=== PATIENT | male | born 1955 | race African-American/Black ===

== ENCOUNTER 2017-10-11 15:15 | Emergency (ER) | payer OTHER ==
[2017-10-11] MEDS ORDERED: DIAZEPAM 2 MG TABLET ONE (16:36)
[2017-10-11] MEDS ORDERED: ONDANSETRON 4 MG/2 ML VIAL ONE (16:36)
[2017-10-11] MEDS ORDERED: KETOROLAC 30 MG/ML INJ ONE ×2 (16:36→16:44)
[2017-10-11] MEDS ORDERED: MORPHINE 4 MG/ML SYR ONE ×2 (16:36→16:44)
--- NOTE | 2017-10-11 17:07 | RAD REPORT ---
EXAM DESCRIPTION: CT - Stone Protocol - 10/11/2017 4:53 pm CLINICAL HISTORY: Back pain, leg pain, buttocks pain COMPARISON: September 2011 TECHNIQUE: Axial 5 mm thick images were obtained without oral or IV contrast. The iavre-ki-rypf span s the entirety of the system partially obscuring uppermost abdomen and lung bases. All CT scans are performed using dose optimization technique as appropriate and may include automated exposure control or mA/KV adjustment according to patient size. FINDINGS: No hydronephrosis is present and no obstructing ureteral calculi. No suspicious renal mass es. Isodense masses and pyelonephritis are not excluded on a stone protocol CT scan. No urinary bladd er suspicious finding. Prostate gland and seminal vesicles within normal limits for patient age. Imaged portions of the liver, spleen and pancreas show no suspicious findings on non-contrast imaging . Cholecystectomy clips are present. No biliary tree dilatation. No significant adrenal finding. No acute bowel finding. There is moderate stool volume throughout the colon. No appendicitis. No acut e GI process identifiable. Fat extends into the origin of each inguinal canal, more pronounced on the right. Small 2 centimeter wide neck umbilical hernia is present. No acute findings at this site. No free air, free fluid or inf lammatory stranding. Prominent bony degenerative change along with postsurgical change noted in the lower lumbar spine. Li near hyperdensity is believed to be part of a pain infusion pump left behind after removal. No congestion or edema along the pelvic floor. Pelvic skeletal musculature shows no suspicious findin g. No congestion or edema in the fat of the perineum. IMPRESSION: Noncontrast CT abdomen and pelvis imaging, as detailed above, is without acute or suspic ious finding. Isodense masses and pyelonephritis are not excluded on stone protocol technique.
--- NOTE | 2017-10-11 18:19 | ER ---
Nurse's Notes [facility] Name: Vicente Roblero Age: 62 yrs Sex: Male : 1955 Arrival Date: 10/11/2017 Time: 15:19 Bed 19 Private MD: De Saavedra Diagnosis: Pain in right leg Presentation: 10/11 15:21 Presenting complaint: Patient states: my R leg has been hurting for the past week. the ch pain starts in my buttock and went down the back of my leg, but now its on the front of my leg. Transition of care: patient was not received from another setting of care. Onset of symptoms was October 05, 2017. Risk Assessment: Do you want to hurt yourself or someone else? Patient reports no desire to harm self or others. Initial Sepsis Screen: Does the patient meet any 2 criteria? No. Patient's initial sepsis screen is negative. Does the patient have a suspected source of infection? No. Patient's initial sepsis screen is negative. Care prior to arrival: None. 15:21 Method Of Arrival: Wheelchair ch 15:21 Acuity: IRWIN 4 ch Triage Assessment: 15:24 General: Appears in no apparent distress. uncomfortable, Behavior is calm, cooperative, ch appropriate for age. Pain: Complains of pain in buttocks and right leg Pain currently is 10 out of 10 on a pain scale. Historical: - Allergies: 15:24 No Known Allergies; ch - Home Meds: 15:24 amlodipine-benazepril 10-40 mg Oral cap [Active]; glipizide 10 mg Oral tab 1 tab once ch daily [Active]; Lipitor 40 mg Oral tab 1 tab once daily [Active]; metoprolol tartrate 50 mg Oral tab 1 tab 2 times per day [Active]; morphine 30 mg Oral TbER 1 tab every 8 hours [Active]; Percocet 10-325 mg Oral tab 1 tab every 6 hours [Active]; omeprazole 40 mg Oral cpDR 1 cap once daily [Active]; - PMHx: 15:24 cardiac stents x 5; Myocardial infarction; Back pain; Hyperlipidemia; Hypertension; ch GERD; - PSHx: 15:24 cardiac stents; back; bunion; Cholecystectomy; pain pump inserted and removed; - Immunization history:: Adult Immunizations up to date, Flu vaccine is up to date. - Social history:: Smoking status: Patient/guardian denies using tobacco, Patient/guardian denies using alcohol, street drugs. - Ebola Screening: : Patient negative for fever greater than or equal to 101.5 degrees Fahrenheit, and additional compatible Ebola Virus Disease symptoms Patient denies exposure to infectious person Patient denies travel to an Ebola-affected area in the 21 days before illness onset No symptoms or risks identified at this time. Screenin:13 Abuse screen: Denies threats or abuse. Denies injuries from another. Nutritional aj screening: No deficits noted. Tuberculosis screening: No symptoms or risk factors identified. Fall Risk None identified. Assessment: 18:13 General: Appears in no apparent distress. comfortable, Behavior is calm, cooperative, aj appropriate for age. Pain: Complains of pain in right lower back, right gluteus sree and right leg. Neuro: Level of Consciousness is awake, alert, obeys commands, Oriented to person, place, time, situation, Appropriate for age. Respiratory: Airway is patent Respiratory effort is even, unlabored, Respiratory pattern is regular, symmetrical. Derm: Skin is intact, is healthy with good turgor, Skin is pink, warm \T\ dry. normal. Musculoskeletal: Reports pain in coccyx, right lower back, right gluteus sree, right gluteal fold and right leg. 18:15 Reassessment: Patient ambulated in hallway with limp to right leg. Report pain has aj decreased from 10/10 to 8/10. 18:28 Reassessment: Patient appears in no apparent distress at this time. Patient and/or aj family updated on plan of care and expected duration. Pain level reassessed. Patient is alert, oriented x 3, equal unlabored respirations, skin warm/dry/pink. Patient states feeling better. Patient states symptoms have improved. Vital Signs: 15:24 BP 185 / 121; Pulse 108; Resp 18; Temp 97.8; Pulse Ox 97% on R/A; Weight 95.25 kg; Height 5 ft. 11 in. (180.34 cm); Pain 10/10; 18:13 BP 157 / 105; Pulse 96; Resp 18; Pulse Ox 98% on R/A; aj 15:24 Body Mass Index 29.29 (95.25 kg, 180.34 cm) ED Course: 15:19 Patient arrived in ED. sb2 15:19 De Saavedra MD is Private Physician. sb2 15:22 Triage completed. ch 15:24 Arm band placed on left wrist. Patient placed in an exam room, on a stretcher. 15:28 Christopher Caputo PA is PHCP. [facility] 15:28 Claudio Villatoro MD is Attending Physician. jmm 15:29 Morenita Mora, GINA is Primary Nurse. aj 16:[address] kw1 16:[address] CT Stone Protocol In Process Unspecified. EDMS 18:13 Patient has correct armband on for positive identification. aj 18:17 Haroon Strong MD is Referral Physician. jmm 18:28 No provider procedures requiring assistance completed. Patient did not have IV access aj during this emergency room visit. Administered Medications: 16:46 CANCELLED (route changed): Zofran 4 mg IVP once; over 2 minutes aj 16:46 CANCELLED (route changed): Ketorolac 30 mg IVP once aj 16:46 CANCELLED (route changed): Valium 2 mg IVP once aj 16:47 CANCELLED (route changed): morphine 4 mg IVP once aj 16:48 Drug: Ketorolac 30 mg Route: IM; Site: right deltoid; aj 18:30 Follow up: Response: Pain is decreased aj 16:48 Drug: Zofran 4 mg Route: IM; Site: left vastus lateralis; aj 18:31 Follow up: Response: Pain is decreased aj 16:48 Drug: morphine 4 mg Route: IM; Site: left deltoid; aj 18:31 Follow up: Response: Pain is decreased aj 16:49 Drug: Valium 2 mg Route: PO; aj 18:30 Follow up: Response: Pain is decreased aj Outcome: 18:18 Discharge ordered by . [facility] 18:28 Discharged to home ambulatory. aj 18:28 Condition: good 18:28 Discharge instructions given to patient, family, Instructed on discharge instructions, follow up and referral plans. Demonstrated understanding of instructions, follow-up care. 18:31 Patient left the ED. aj Signatures: Dispatcher [employer] EDMS Taryn Brumfield RN RN ch Myers, Amanda, RN RN Christopher Caputo PA [facility] Emmy Cha kw1 Evangelina Myers sb2
--- NOTE | 2017-10-11 18:19 | EDPHYS ---
Physician Documentation [facility] Name: Vicente Roblero Age: 62 yrs Sex: Male : 1955 Arrival Date: 10/11/2017 Time: 15:19 Bed 19 Private MD: De Saavedra ED Physician Claudio Villatoro HPI: 10/11 16:00 This 62 yrs old Black Male presents to ER via Wheelchair with complaints of Leg Pain, jmm LEG NUMBNESS. 16:00 The complaints affect the right hip, lateral aspect of right thigh, right gluteal fold, jmm right hamstring, right inner thigh, medial aspect of right thigh, right upper thigh and right quadriceps. Onset: The symptoms/episode began/occurred gradually, 2 week(s) ago. This is a 62 year old male with a hx of chronic right leg pain, DM, HTN that presents to the ED with progressively worsening pain over the past two weeks. Patient denies fever, denies injury. Patient states his pain management physician changed in pain medication. patient states his pain has progressively worsened since. Denies urinary retention, denies fecal incontinence. . Historical: - Allergies: 15:24 No Known Allergies; ch - Home Meds: 15:24 amlodipine-benazepril 10-40 mg Oral cap [Active]; glipizide 10 mg Oral tab 1 tab once ch daily [Active]; Lipitor 40 mg Oral tab 1 tab once daily [Active]; metoprolol tartrate 50 mg Oral tab 1 tab 2 times per day [Active]; morphine 30 mg Oral TbER 1 tab every 8 hours [Active]; Percocet 10-325 mg Oral tab 1 tab every 6 hours [Active]; omeprazole 40 mg Oral cpDR 1 cap once daily [Active]; - PMHx: 15:24 cardiac stents x 5; Myocardial infarction; Back pain; Hyperlipidemia; Hypertension; ch GERD; - PSHx: 15:24 cardiac stents; back; bunion; Cholecystectomy; pain pump inserted and removed; ch - Immunization history:: Adult Immunizations up to date, Flu vaccine is up to date. - Social history:: Smoking status: Patient/guardian denies using tobacco, Patient/guardian denies using alcohol, street drugs. - Ebola Screening: : Patient negative for fever greater than or equal to 101.5 degrees Fahrenheit, and additional compatible Ebola Virus Disease symptoms Patient denies exposure to infectious person Patient denies travel to an Ebola-affected area in the 21 days before illness onset No symptoms or risks identified at this time. ROS: 16:00 Constitutional: Negative for fever, chills, and weight loss, Abdomen/GI: Negative for jmm abdominal pain, nausea, vomiting, diarrhea, and constipation, Back: Negative for injury and pain. 16:00 MS/extremity: Positive for pain. 16:00 Neuro: Positive for tingling, pain. 16:00 All other systems are negative. Exam: 16:00 Head/Face: atraumatic. Cardiovascular: Regular rate and rhythm. No gallops, murmurs, jmm or rubs. Full/Equal distal pulses. Respiratory: Lungs have equal breath sounds bilaterally, clear to auscultation. No rales, rhonchi or wheezes noted. No increased work of breathing, no retractions or nasal flaring. 16:00 Constitutional: The patient appears alert, awake, uncomfortable. 16:00 Abdomen/GI: Inspection: obese 16:00 Back: no midline tenderness appreciated. 16:00 Musculoskeletal/extremity: dorsalis pedis pulse appreciated, extension of right great toe appreciated, NVI. 16:00 Skin: Appearance: Color: normal in color. 16:00 Neuro: Orientation: is normal, Mentation: is normal, Memory: is normal. 16:00 Psych: Behavior/mood is pleasant. Vital Signs: 15:24 BP 185 / 121; Pulse 108; Resp 18; Temp 97.8; Pulse Ox 97% on R/A; Weight 95.25 kg; ch Height 5 ft. 11 in. (180.34 cm); Pain 10/10; 18:13 BP 157 / 105; Pulse 96; Resp 18; Pulse Ox 98% on R/A; aj 15:24 Body Mass Index 29.29 (95.25 kg, 180.34 cm) ch MDM: 16:00 Differential diagnosis: spinal abscess, radicular pain. Data reviewed: vital signs, [facility] nurses notes. 16:09 Patient medically screened. [facility] 17:16 ED course: The patient stated that he also has a hx of bilateral hip pain is currently [facility] seeing Dr. Strong for this. Pain appears more likely due to this. The patient does not have a fever, is non toxic in appearance, has not had recent instrumentation of the spine that would be concerning for spinal abscess. Patient symptoms are mildly in the ED. The patient is advised of the need to follow up with Dr. Strong for reevaluation. Patient is other poole advised to return to the ED if he develops increased pain, fever, weakness. . 10/11 16:30 Order name: CT Stone Protocol; Complete Time: 17:16 [facility] Administered Medications: 16:46 CANCELLED (route changed): Zofran 4 mg IVP once; over 2 minutes aj 16:46 CANCELLED (route changed): Ketorolac 30 mg IVP once aj 16:46 CANCELLED (route changed): Valium 2 mg IVP once aj 16:47 CANCELLED (route changed): morphine 4 mg IVP once aj 16:48 Drug: Ketorolac 30 mg Route: IM; Site: right deltoid; aj 18:30 Follow up: Response: Pain is decreased aj 16:48 Drug: Zofran 4 mg Route: IM; Site: left vastus lateralis; aj 18:31 Follow up: Response: Pain is decreased aj 16:48 Drug: morphine 4 mg Route: IM; Site: left deltoid; aj 18:31 Follow up: Response: Pain is decreased aj 16:49 Drug: Valium 2 mg Route: PO; aj 18:30 Follow up: Response: Pain is decreased aj Disposition: 10/11/17 18:18 Discharged to Home. Impression: Pain in right leg. - Condition is Stable. - Discharge Instructions: Musculoskeletal Pain. - Medication Reconciliation Form, Thank You Letter, Antibiotic Education, Prescription Opioid Use form. - Follow up: Haroon Strong MD; When: 1 - 2 days; Reason: Recheck today's complaints. - Notes: Please follow up with pain management or orthopedics for further evaluation of your pain. Please return to the ED if you develop fever, weakness, numbness, or any other concerning symptom. Addendum: 10/19/2017 11:32 Co-signature as Attending Physician, Claudio Villatoro MD. g s Signatures: Dispatcher [employer] EDMS Taryn Brumfield RN RN ch Myers, Amanda, RN RN aj Mickail, Joel, PA PA jmm Starr, Gregory, MD MD gs Corrections: (The following items were deleted from the chart) 10/11 16:46 16:20 Zofran 4 mg IVP once; over 2 minutes ordered. zuleyka rosado 16:46 16:24 Ketorolac 30 mg IVP once ordered. zuleyka rosado 16:46 16:24 Valium 2 mg IVP once ordered. zuleyka rosado 16:47 16:20 IV Saline Lock ordered. zuleyka rosado 16:47 16:20 morphine 4 mg IVP once ordered. zuleyka rosado 18:31 18:18 10/11/2017 18:18 Discharged to Home. Impression: Pain in right leg. Condition is aj Stable. Forms are Medication Reconciliation Form, Thank You Letter, Antibiotic Education, Prescription Opioid Use. Follow up: Haroon Strong; When: 1 - 2 days; Reason: Recheck today's complaints. zuleyka
[2017-10-11 19:22] VITALS: BP 142/77; TEMP 99; O2SAT 99
== END 2017-10-11 18:31 | disposition home or self-care (01) ==
LOC: ER 15:15
DX: M79.604 Pain in right leg (principal); I10 Essential (primary) hypertension; E11.9 Type 2 diabetes mellitus without complications; E78.5 Hyperlipidemia, unspecified; Z95.818 Presence of other cardiac implants and grafts
CPT/HCPCS: 74176; 76377; 96372; 99284; J2405

== ENCOUNTER 2018-07-04 07:31 | Emergency (ER) | payer OTHER ==
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
[2018-07-04 08:58] VITALS: TEMP 98.2
[2018-07-04 08:59] VITALS: BP 126/89; O2SAT 96
== END 2018-07-04 08:53 | disposition home or self-care (01) ==
LOC: ER 07:31
DX: R51 Headache (principal); V49.40XA Driver injured in collision with unspecified motor vehicles in traffic accident, initial encounter; I10 Essential (primary) hypertension; E78.5 Hyperlipidemia, unspecified; I25.2 Old myocardial infarction; Z79.01 Long term (current) use of anticoagulants; Z79.82 Long term (current) use of aspirin; Z95.818 Presence of other cardiac implants and grafts
CPT/HCPCS: 70450; 72125; 99283

== ENCOUNTER 2020-01-27 09:23 | Observation (INO) | payer OTHER ==
--- OUTSIDE RECORDS SUMMARY | 2020-01-27 09:25 | XMS REPORT | Continuity of Care Document ---
:[address] [facility] t Address [address] [place] [address] Care Team Providers Name Role Phone Unavailable Unavailable Unavailable Payers Payer Name Policy Type Policy Number Effective Date Expiration Date S ource Problems This patient has no known problems. Allergies, Adverse Reactions, Alerts Allergy Allergy Status Severity Reaction(s) Onset Inactive Treating Comm ents Source Name Type Date Date Clinician massiel MONCADA Active [facility] n[facility] 01-24 00:00: [address] Medications This patient has no known medications. Procedures This patient has no known procedures. Results Test Description Test Time Test Comments Results Result Comments Source LIPID PROFILE (CORONARY RISK) 2019-01-25 08:23:00 Test Item Value Reference Range Interpretation Comme nts TRIGLYCERIDES (test code = TRIG) 117 MG/DL TRIGLYCERIDES REFERENCE RANGE:Normal: < 150 mg/dLBorderline High: 150-199 m g/dLHigh: 200-499 mg/dLVery High: >=500 mg/dL CHOLESTEROL (test code = CHOL) 175 MG/DL <200 HDL CHOLESTEROL (test code = HDL) 39 MG/DL 40-59 L LIPOPROTEIN LDL (test code = LDL) 117 MG/DL 0-99 H OPTIMAL........ .<100 mg/dLNEAR OPTIMAL/ABOVE OPTIMAL........ .100-129 mg/dL BORDERLINE HIGH.........13 0-159 mg/dL HI GH.........160-189 mg/dL VERY HIGH.........>/ = 190 mg/dL LIPID PROFILE (CORONARY RISK)2019-01-25 07:56:00 Test Item Value Reference Range Interpretation Comments TRIGLYCERIDES (test 117 MG/DL TRIGLYCE RIDES code = TRIG) REFERENCE RANGE:Normal: < 150 mg/dLBorderline High: 150-199 mg/dLHi gh: 200-499 mg/dLVe ry High: >=500 mg/ dL CHOLESTEROL (test code 175 MG/DL <200 = CHOL) HDL CHOLESTEROL (test 39 MG/DL 40-59 L code = HDL) LIPOPROTEIN LDL (test MG/DL 0-99 code = LDL) LIPID PROFILE (CORONARY RISK)2019-01-25 07:55:00 Test Item Value Reference Range Interpretation Comments TRIGLYCERIDES (test code = TRIG) MG/DL CHOLESTEROL (test code = CHOL) 175 MG/DL <200 HDL CHOLESTEROL (test code = HDL) MG/DL 40-59 LIPOPROTEIN LDL (test code = LDL) MG/DL 0-99 BASIC METABOLIC [id number] 07:21:00 Test Item Value Reference Range Interpretation Comments SODIUM (test code = 140 MMOL/L 137-145 N NA) POTASSIUM (test code = 4.1 MMOL/L 3.5-5.1 N K) CHLORIDE (test code = 103 MMOL/L 98-107 N CL) CARBON DIOXIDE (test 24 MMOL/L 22-30 N code = CO2) GLUCOSE (test code = 141 MG/DL 74-106 H GLU) BLOOD UREA NITROGEN 21 MG/DL 9-20 H (test code = BUN) GLOMERULAR FILTRATION > 60 Report ing units: RATE (test code = GFR) ml/mi n/1.73 m2 (Modified MDRD Formula)Referen ce Range: > or = 6 0 ml/min/1.73 m2 CREATININE (test code 0.90 MG/DL 0.66-1.25 N = CREAT) CALCIUM (test code = 9.9 MG/DL 8.4-10.2 N CA) [id number] 07:21:00 Test Item Value Reference Range Interpretation Comments LIPASE (test code = LIP) 65 UNITS/L 23-300 N [id number] 07:21:00 Test Item Value Reference Range Interpretation Comments MAGNESIUM (test code = MAG) 2.2 MG/DL 1.6-2.3 N PROTHROMBIN [id number] 07:21:00 Test Item Value Reference Range Interpretation Comments PROTHROMBIN TIME 10.7 SECONDS 9.6-11.6 N PATIENT (test code = PTP) INTERNATIONAL NORMAL 1.0 0.8-1.1 N The INR is to be RATIO (test code = used only for INR) monitoring oral anticoagulantth erap y. INDICATION I NR VALUE ---- ---- ---- -------1. Prophylaxis, de ep venous thrombos is, including hig h risk surgery. 2.0 - 3.0 2. Prophylaxis, de ep venous thrombos is, hip surgery, treatment for d eep venous thrombosis or pulmonary prevention of systemic emboli sm in patients wit h valvular heart disease, atrial fibrillation, tissue heart va lve, or acute myocar dial infarction. 2.0 - 3 .0 3. Mechanical prosthesis hear t valves, recurrent syste ibrahima embolism. 3.0 - 4.5 Comments to Braille Translator: WILL BRING TO THE LABPTT [id number] 07:21:00 Test Item Value Reference Range Interpretation Comments PTT ACTIVATED (test code = APTT) 32.9 SECONDS 22.0-33.0 N Comments to Braille Translator: WILL BRING TO THE LABBASIC METABOLIC [id number] 07:20:00 Test Item Value Reference Range Interpretation Comments SODIUM (test code = 140 MMOL/L 137-145 N NA) POTASSIUM (test code = 4.1 MMOL/L 3.5-5.1 N K) CHLORIDE (test code = 103 MMOL/L 98-107 N CL) CARBON DIOXIDE (test 24 MMOL/L 22-30 N code = CO2) GLUCOSE (test code = MG/DL 74-106 GLU) BLOOD UREA NITROGEN MG/DL 9-20 (test code = BUN) GLOMERULAR FILTRATION > 60 Report ing units: RATE (test code = GFR) ml/mi n/1.73 m2 (Modified MDRD Formula)Referen ce Range: > or = 6 0 ml/min/1.73 m2 CREATININE (test code 0.90 MG/DL 0.66-1.25 N = CREAT) CALCIUM (test code = MG/DL 8.7-9.7 CA) [id number] 07:20:00 Test Item Value Reference Range Interpretation Comments LIPASE (test code = LIP) 65 UNITS/L 23-300 N [id number] 07:20:00 Test Item Value Reference Range Interpretation Comments MAGNESIUM (test code = MAG) MG/DL 1.6-2.3 BASIC METABOLIC [id number] 07:18:00 Test Item Value Reference Range Interpretation Comments SODIUM (test code = NA) 140 MMOL/L 137-145 N POTASSIUM (test code = K) 4.1 MMOL/L 3.5-5.1 N CHLORIDE (test code = CL) 103 MMOL/L 98-107 N CARBON DIOXIDE (test code = CO2) MMOL/L 22-30 GLUCOSE (test code = GLU) MG/DL 74-106 BLOOD UREA NITROGEN (test code = MG/DL 9-20 BUN) GLOMERULAR FILTRATION RATE (test code = GFR) CREATININE (test code = CREAT) MG/DL 0.66-1.25 CALCIUM (test code = CA) MG/DL 8.7-9.7 [id number] 07:18:00 Test Item Value Reference Range Interpretation Comments LIPASE (test code = LIP) UNITS/L 23-300 [id number] 07:18:00 Test Item Value Reference Range Interpretation Comments MAGNESIUM (test code = MAG) MG/DL 1.6-2.3 BASIC METABOLIC [id number] 07:17:00 Test Item Value Reference Range Interpretation Comments SODIUM (test code = NA) 140 MMOL/L 137-145 N POTASSIUM (test code = K) MMOL/L 3.5-5.1 CHLORIDE (test code = CL) 103 MMOL/L 98-107 N CARBON DIOXIDE (test code = CO2) MMOL/L 22-30 GLUCOSE (test code = GLU) MG/DL 74-106 BLOOD UREA NITROGEN (test code = MG/DL 9-20 BUN) GLOMERULAR FILTRATION RATE (test code = GFR) CREATININE (test code = CREAT) MG/DL 0.66-1.25 CALCIUM (test code = CA) MG/DL 8.7-9.7 [id number] 07:17:00 Test Item Value Reference Range Interpretation Comments LIPASE (test code = LIP) UNITS/L 23-300 [id number] 07:17:00 Test Item Value Reference Range Interpretation Comments MAGNESIUM (test code = MAG) MG/DL 1.6-2.3 CBC W/AUTO [id number] 07:07:00 Test Item Value Reference Range Interpretation Comments WHITE BLOOD CELL (test code = 6.5 K/MM3 3.8-9.8 N WBC) RED BLOOD CELL (test code = 4.75 M/MM3 3.95-5.67 N RBC) HEMOGLOBIN (test code = HGB) 14.8 G/DL 12.4-16.7 N HEMATOCRIT (test code = HCT) 45.2 % 35.9-49.5 N MEAN CELL VOLUME (test code = 95 fL 81.7-96.1 N MCV) MEAN CELL HGB (test code = MCH) 31.2 pg 27.6-33.2 N MEAN CELL HGB CONCETRATION 32.7 % 32.9-35.5 L (test code = MCHC) RED CELL DISTRIBUTION WIDTH 12.7 % 12.1-15.2 N (test code = RDW) PLATELET COUNT (test code = 313 K/MM3 129-368 N PLT) MEAN PLATELET VOLUME (test code 10.0 fl 7.4-10.4 N = MPV) NEUTROPHIL % (test code = NT%) 63.3 % 43-75 N IMMATURE GRANULOCYTE % (test 0.3 % 0.0-2.0 N code = IG%) LYMPHOCYTE % (test code = LY%) 25.6 % 14-44 N MONOCYTE % (test code = MO%) 9.0 % 4-13 N EOSINOPHIL % (test code = EO%) 1.2 % 0-6 N BASOPHIL % (test code = BA%) 0.6 % 0-2 N NUCLEATED RBC % (test code = 0.0 % 0-1.0 N NRBC%) NEUTROPHIL # (test code = NT#) 4.08 K/mm3 2.0-7.6 N IMMATURE GRANULOCYTE # (test 0.02 x10 3/uL 0-0.03 N code = IG#) LYMPHOCYTE # (test code = LY#) 1.65 K/mm3 1.0-3.8 N MONOCYTE # (test code = MO#) 0.58 K/mm3 0.1-0.8 N EOSINOPHIL # (test code = EO#) 0.08 K/mm3 0.0-0.2 N BASOPHIL # (test code = BA#) 0.04 K/mm3 0.0-0.2 N NUCLEATED RBC # (test code = 0.00 K/mm3 0.0-0.1 N NRBC#)
[2020-01-27 10:08] LABS: Protime INR 1.13
[2020-01-27] MEDS ORDERED: NITROGLYCERIN 0.4 MG/TAB SL ONE (10:11)
[2020-01-27 10:23] LABS: Absolute Lymphocytes (CBC) 1.3 K/uL (0.7-4.9); BUN Blood Urea Nitrogen 26 mg/dL (7-18); Bicarbonate 22 mmol/L (21-32); Glucose Level 164 mg/dL (74-106); Hematocrit 48.8 % (39.6-49.0); Lymphocytes % 24.7 % (15.3-44.8); MPV 8.6 fL (7.6-11.3); NT PRO-BNP 9 pg/mL (<125); Potassium 4.5 mmol/L (3.5-5.1); RBC Red Blood Cell Count 5.24 M/uL (4.33-5.43); Sodium Level 136 mmol/L (136-145); Troponin (Emerg Dept Use Only) < 0.02 ng/mL (0.0-0.045)
[2020-01-27] MEDS ORDERED: ONDANSETRON 4 MG/2 ML VIAL ONE (10:28)
[2020-01-27] MEDS ORDERED: MORPHINE 4 MG/ML SYR ONE (10:28)
[2020-01-27] MEDS ORDERED: ASPIRIN 81 MG CHEWABLE TABLET ONE (10:52)
--- NOTE | 2020-01-27 11:27 | RAD REPORT ---
EXAM DESCRIPTION: RAD - Chest Single View - 01/27/2020 10:15 am CLINICAL HISTORY: CHEST PAIN, left side COMPARISON: Portable May 2017 TECHNIQUE: AP portable chest image was obtained 01/27/2020 10:15 am . FINDINGS: Lungs are clear. Heart and vasculature are normal. No measurable pleural effusion and no p neumothorax. No acute bony abnormality seen. No acute aortic findings suspected. IMPRESSION: No acute cardiopulmonary process. No significant change from comparison.
--- NOTE | 2020-01-27 11:36 | EDPHYS ---
Physician Documentation [facility] Name: Vicente Roblero Age: 64 yrs Sex: Male : 1955 Arrival Date: 01/27/2020 Time: 09:24 Bed 6 Private MD: ED Physician Perico Eric HPI: 01/26 09:42 This 64 yrs old Black Male presents to ER via Ambulatory with complaints of Chest Pain, rn Shortness Of Breath. 09:42 The patient or guardian reports chest pain that is located primarily in the anterior rn chest wall, anterior aspect of left upper chest. Onset: 2 day(s) ago. The pain radiates to the left shoulder. Associated signs and symptoms: Pertinent positives: shortness of breath. The chest pain is described as a heaviness. Duration: The patient or guardian reports multiple episodes, that are intermittent. Modifying factors: The symptoms are alleviated by nothing. the symptoms are aggravated by nothing. Severity of pain: At its worst the pain was moderate in the emergency department the pain has improved. The patient has experienced similar episodes in the past. Reports substernal and left sided chest pain, assoc with sob, no cough/fever, no trauma, began 2 days ago, intermittent for about 15-20 min, improves on its own, worse today and not improving. Takes daily 81mg aspirin. Reports UT in past with 5 stents. Last cath 1 year ago, no stent. . Historical: - Allergies: 10:23 Stadol; tw2 - Home Meds: 10:23 aspirin 81 mg Oral chew 1 tab once daily [Active]; glipizide 10 mg Oral tab 1 tab once tw2 daily [Active]; metoprolol tartrate 50 mg Oral tab 1 tab 2 times per day [Active]; omeprazole 40 mg Oral cpDR 1 cap once daily [Active]; 10:48 atorvastatin 40 mg oral tab 1 tab once daily [Active]; isosorbide 20 mg 1 tab [Active]; tw2 morphine 30 mg Oral TbER 1 tab every 12 hours [Active]; Plavix 75 mg oral tab 1 tab once daily [Active]; Cymbalta 60 mg oral cpDR 1 cap once daily [Active]; cyclobenzaprine 10 mg Oral tab 1 tab 3 times per day [Active]; Nitrostat 0.3 mg SL subl 1 tab every 5 minutes [Active]; MS Contin 30 mg Oral TbER 1 tab every 12 hours [Active]; Decara 50,000 unit oral cap [Active]; metformin 500 mg Oral tr24 1 tab once daily [Active]; Zofran (as hydrochloride) 4 mg Oral tab 1 tabs [Active]; Jardiance 10 mg oral tab 1 tab once daily [Active]; 11:31 empagliflozin oral 10 mg oral 1 tab once daily [Active]; hydrochlorothiazide 12.5 mg tw2 Oral tab 1 tab once daily [Active]; amlodipine-olmesartan oral 10 mg - 40 mg oral 1 tab once daily [Active]; ProAir HFA 90 mcg/actuation inhalation HFAA 1 puff every 4 hours [Active]; albuterol sulfate 2.5 mg /3 mL (0.083 %) Inhl nebu 3 mL 3 times per day [Active]; cetirizine 10 mg oral tab 1 tab once daily [Active]; - PMHx: 10:23 Hypertension; Hyperlipidemia; Myocardial infarction; cardiac stents x 5; Back pain; tw2 GERD; 13:57 Diabetes - NIDDM; tw2 - PSHx: 10:23 cardiac stents; Cholecystectomy; bunion; pain pump inserted and removed; back; tw2 - Immunization history:: Adult Immunizations. - Family history:: not pertinent. - Social history:: Smoking status: . - Hospitalizations: : No recent hospitalization is reported. ROS: 09:42 Constitutional: Negative for fever, chills, and weight loss, Eyes: Negative for injury, rn pain, redness, and discharge, Neck: Negative for injury, pain, and swelling, Cardiovascular: Negative for palpitations, and edema, Respiratory: Negative for cough, wheezing, and pleuritic chest pain, Abdomen/GI: Negative for abdominal pain, nausea, vomiting, diarrhea, and constipation, Back: Negative for injury and pain, MS/Extremity: Negative for injury and deformity, Skin: Negative for injury, rash, and discoloration, Neuro: Negative for headache, weakness, numbness, tingling, and seizure. Exam: 09:40 ECG was reviewed by the Attending Physician. rn 09:42 Constitutional: This is a well developed, well nourished patient who is awake, alert, rn and in no acute distress. Head/Face: Normocephalic, atraumatic. Cardiovascular: Regular rate and rhythm. No pulse deficits. Respiratory: No increased work of breathing, no retractions or nasal flaring. Abdomen/GI: soft, non-tender Skin: Warm, dry MS/ Extremity: Pulses equal, no cyanosis. Neuro: Awake and alert, GCS 15 Vital Signs: 09:35 BP 136 / 90; Pulse 87; Resp 16; Temp 97.6; Pulse Ox 100% ; Pain 8/10; hb 10:27 Weight 95.25 kg (R); tw2 10:30 BP 118 / 85; Pulse 76; Resp 13; Pulse Ox 98% on R/A; tw2 10:43 Pain 4/10; tw2 11:21 BP 99 / 67; Pulse 78; Resp 14; Pulse Ox 99% on R/A; tw2 12:18 BP 111 / 78; Pulse 85; Resp 16; Pulse Ox 100% on R/A; tw2 13:20 BP 106 / 69; Pulse 83; Resp 17; Pulse Ox 99% on R/A; tw2 14:00 BP 118 / 73; Pulse 79; Resp 17; Pulse Ox 100% ; sv MDM: 09:28 Patient medically screened. rn 11:32 Differential diagnosis: coronary artery disease chest wall pain, congestive heart rn failure costochondritis, esophagitis, gastritis, gastroesophageal reflux disease (GERD), pleurisy, pneumothorax, stable angina, unstable angina. The patient was given aspirin in the Emergency Department. Data reviewed: vital signs, nurses notes, lab test result(s), EKG, radiologic studies, plain films, and as a result, I will admit patient. Counseling: I had a detailed discussion with the patient and/or guardian regarding: the historical points, exam findings, and any diagnostic results supporting the discharge/admit diagnosis, lab results, radiology results, the need for further work-up and treatment in the hospital. Response to treatment: the patient's symptoms have resolved after treatment, and as a result, I will admit patient. Admission orders: after a detailed discussion of the patient's condition and case, the admit orders are written by me. ED course: Pain resolved after morphine and aspirin. Will admit for chest pain w/u given strong history and no other etiology found. . 01/26 09:42 Order name: Basic Metabolic Panel rn 01/26 09:42 Order name: CBC with Diff rn 01/26 09:42 Order name: NT PRO-BNP rn 01/26 09:42 Order name: PT-INR rn 01/26 09:42 Order name: Troponin (emerg Dept Use Only) rn 01/26 09:42 Order name: Basic Metabolic Panel; Complete Time: 10:37 EDMS 01/26 09:42 Order name: XRAY Chest (1 view); Complete Time: 11:29 rn 01/26 09:42 Order name: CBC with Automated Diff; Complete Time: 10:37 EDMS 01/26 09:42 Order name: NT PRO-BNP; Complete Time: 10:37 EDMS 01/26 09:42 Order name: Protime (+INR); Complete Time: 10:37 EDMS 01/26 09:42 Order name: Troponin (Emerg Dept Use Only); Complete Time: 10:37 EDMS 01/26 09:42 Order name: EKG; Complete Time: 09:42 rn 01/26 09:42 Order name: Cardiac monitoring; Complete Time: 10:00 rn 01/26 09:42 Order name: EKG - Nurse/Tech; Complete Time: 09:42 rn 01/26 09:42 Order name: IV Saline Lock; Complete Time: 10:00 rn 01/26 09:42 Order name: Labs collected and sent; Complete Time: 10:00 rn 01/26 09:42 Order name: O2 Per Protocol; Complete Time: 10:00 rn 01/26 09:42 Order name: O2 Sat Monitoring; Complete Time: 10:00 rn EC:40 Rate is 90 beats/min. Rhythm is regular. QRS [place] is Normal. [place] interval is normal. QRS rn interval is normal. QT interval is normal. No Q waves. T waves are Normal. No ST changes noted. Clinical impression: Normal ECG. Interpreted by me. Reviewed by me. Administered Medications: 10:04 Drug: Nitroglycerin 0.4 mg Route: Sublingual; tw2 10:17 Follow up: Response: No adverse reaction; Pain is unchanged, physician notified tw2 10:19 Drug: Zofran (Ondansetron) 4 mg Route: IVP; Site: right forearm; tw2 10:42 Follow up: Response: No adverse reaction tw2 10:21 Drug: morphine 4 mg Route: IVP; Site: right forearm; tw2 10:42 Follow up: Response: No adverse reaction; Pain is decreased; RASS: Alert and Calm (0) tw2 10:42 Drug: Aspirin Chewable Tablet 324 mg Route: PO; tw2 12:17 Follow up: Response: No adverse reaction tw2 Disposition: 01/27/20 11:35 Hospitalization ordered by Mark Walker for Observation. Preliminary diagnosis is Chest pain, unspecified. - Bed requested for Telemetry/MedSurg (observation). - Status is Observation. tw2 - Condition is Stable. - Problem is new. - Symptoms have improved. Signatures: Dispatcher [employer] EDMS Alice Yeboah Perico Dong MD MD rn Wise, Tara, RN RN tw2 Corrections: (The following items were deleted from the chart) 10:49 10:23 Home Meds: atorvastatin Oral; tw2 tw2 10:49 10:23 Home Meds: isosorbide; tw2 tw2 10:49 10:23 Home Meds: morphine 30 mg Oral TbER 1 tab every 8 hours; tw2 tw2 10:49 10:23 Home Meds: Plavix Oral; tw2 tw2 11:31 10:23 Home Meds: amlodipine-benazepril 10-40 mg Oral cap; tw2 tw2 11:31 10:23 Home Meds: Lipitor 40 mg Oral tab 1 tab once daily; tw2 tw2 11:31 10:23 Home Meds: Percocet 10-325 mg Oral tab 1 tab every 6 hours; tw2 tw2 13:12 11:35 Hospitalization Ordered by Mark Walker for Observation. Preliminary diagnosis bd is Chest pain, unspecified. Bed requested for Telemetry/MedSurg (observation). Status is Observation. Condition is Stable. Problem is new. Symptoms have improved. rn 14:18 13:12 01/27/2020 11:35 Hospitalization Ordered by Mark Walker for Observation. tw2 Preliminary diagnosis is Chest pain, unspecified. Bed requested for Telemetry/MedSurg (observation). Status is Observation. Condition is Stable. Problem is new. Symptoms have improved. bd
--- NOTE | 2020-01-27 11:36 | ER ---
Nurse's Notes [facility] Name: Vicente Roblero Age: 64 yrs Sex: Male : 1955 Arrival Date: 01/27/2020 Time: 09:24 Bed 6 Private MD: Diagnosis: Chest pain, unspecified Presentation: 01/26 09:35 Chief complaint: Intermittent left sided chest pain that radiates to left shoulder and hb upper back x 3 days. Also c/o nausea and SOB. Hx of OH with stent placement. Coronavirus screen: At this time, the client does not indicate any symptoms associated with coronavirus-19. Ebola Screen: No symptoms or risks identified at this time. Initial Sepsis Screen: Does the patient meet any 2 criteria? No. Patient's initial sepsis screen is negative. Does the patient have a suspected source of infection? No. Patient's initial sepsis screen is negative. Risk Assessment: Do you want to hurt yourself or someone else? Patient reports no desire to harm self or others. Onset of symptoms was January 24, 2020. 09:35 Method Of Arrival: Ambulatory hb 09:35 Acuity: IRWIN 3 hb Historical: - Allergies: 10:23 Stadol; tw2 - Home Meds: 10:23 aspirin 81 mg Oral chew 1 tab once daily [Active]; glipizide 10 mg Oral tab 1 tab once tw2 daily [Active]; metoprolol tartrate 50 mg Oral tab 1 tab 2 times per day [Active]; omeprazole 40 mg Oral cpDR 1 cap once daily [Active]; 10:48 atorvastatin 40 mg oral tab 1 tab once daily [Active]; isosorbide 20 mg 1 tab [Active]; tw2 morphine 30 mg Oral TbER 1 tab every 12 hours [Active]; Plavix 75 mg oral tab 1 tab once daily [Active]; Cymbalta 60 mg oral cpDR 1 cap once daily [Active]; cyclobenzaprine 10 mg Oral tab 1 tab 3 times per day [Active]; Nitrostat 0.3 mg SL subl 1 tab every 5 minutes [Active]; MS Contin 30 mg Oral TbER 1 tab every 12 hours [Active]; Decara 50,000 unit oral cap [Active]; metformin 500 mg Oral tr24 1 tab once daily [Active]; Zofran (as hydrochloride) 4 mg Oral tab 1 tabs [Active]; Jardiance 10 mg oral tab 1 tab once daily [Active]; 11:31 empagliflozin oral 10 mg oral 1 tab once daily [Active]; hydrochlorothiazide 12.5 mg tw2 Oral tab 1 tab once daily [Active]; amlodipine-olmesartan oral 10 mg - 40 mg oral 1 tab once daily [Active]; ProAir HFA 90 mcg/actuation inhalation HFAA 1 puff every 4 hours [Active]; albuterol sulfate 2.5 mg /3 mL (0.083 %) Inhl nebu 3 mL 3 times per day [Active]; cetirizine 10 mg oral tab 1 tab once daily [Active]; - PMHx: 10:23 Hypertension; Hyperlipidemia; Myocardial infarction; cardiac stents x 5; Back pain; tw2 GERD; 13:57 Diabetes - NIDDM; tw2 - PSHx: 10:23 cardiac stents; Cholecystectomy; bunion; pain pump inserted and removed; back; tw2 - Immunization history:: Adult Immunizations. - Family history:: not pertinent. - Social history:: Smoking status: . - Hospitalizations: : No recent hospitalization is reported. Screenin:34 Abuse screen: Denies threats or abuse. Nutritional screening: No deficits noted. tw2 Tuberculosis screening: No symptoms or risk factors identified. Fall Risk None identified. Assessment: 09:30 General: Appears in no apparent distress. Behavior is calm, cooperative, appropriate tw2 for age. Pain: Complains of pain in chest Pain radiates to left arm Pain began 2-3 days ago. 09:34 Reassessment: provider at bedside at this time. tw2 10:29 Neuro: Level of Consciousness is awake, alert, obeys commands, Oriented to person, tw2 place, time, situation. Cardiovascular: Reports chest pain, shortness of breath, Heart tones S1 S2 Capillary refill < 3 seconds Patient's skin is warm and dry. Respiratory: Airway is patent Respiratory effort is even, unlabored, Respiratory pattern is regular, symmetrical, Breath sounds are clear bilaterally. GI: No signs and/or symptoms were reported involving the gastrointestinal system. Abdomen is round non-distended, Bowel sounds present X 4 quads. : No signs and/or symptoms were reported regarding the genitourinary system. EENT: No signs and/or symptoms were reported regarding the EENT system. Derm: No signs and/or symptoms reported regarding the dermatologic system. Musculoskeletal: Range of motion: intact in all extremities. 10:30 Reassessment: Patient appears in no apparent distress at this time. Patient and/or tw2 family updated on plan of care and expected duration. Pain level reassessed. Patient is alert, oriented x 3, equal unlabored respirations, skin warm/dry/pink. 10:43 Reassessment: Patient states feeling better. Patient states symptoms have improved. tw2 11:21 Reassessment: Patient appears in no apparent distress at this time. Patient and/or tw2 family updated on plan of care and expected duration. Pain level reassessed. Patient is alert, oriented x 3, equal unlabored respirations, skin warm/dry/pink. 11:34 Reassessment: Patient appears in no apparent distress at this time. Patient and/or tw2 family updated on plan of care and expected duration. Pain level reassessed. pt states "i need to go #2", provided pt with w/c and o2 via NC at this time. pt returned to room at this time, states "i think the treatment helped just a little bit". 12:16 Reassessment: hospitalist at bedside at this time. tw2 12:19 Reassessment: Patient appears in no apparent distress at this time. Patient and/or tw2 family updated on plan of care and expected duration. Pain level reassessed. Patient is alert, oriented x 3, equal unlabored respirations, skin warm/dry/pink. 13:20 Reassessment: Patient appears in no apparent distress at this time. Patient and/or tw2 family updated on plan of care and expected duration. Pain level reassessed. Patient is alert, oriented x 3, equal unlabored respirations, skin warm/dry/pink. 14:18 Reassessment: Patient appears in no apparent distress at this time. Patient and/or tw2 family updated on plan of care and expected duration. Pain level reassessed. Patient is alert, oriented x 3, equal unlabored respirations, skin warm/dry/pink. Vital Signs: 09:35 BP 136 / 90; Pulse 87; Resp 16; Temp 97.6; Pulse Ox 100% ; Pain 8/10; hb 10:27 Weight 95.25 kg (R); tw2 10:30 BP 118 / 85; Pulse 76; Resp 13; Pulse Ox 98% on R/A; tw2 10:43 Pain 4/10; tw2 11:21 BP 99 / 67; Pulse 78; Resp 14; Pulse Ox 99% on R/A; tw2 12:18 BP 111 / 78; Pulse 85; Resp 16; Pulse Ox 100% on R/A; tw2 13:20 BP 106 / 69; Pulse 83; Resp 17; Pulse Ox 99% on R/A; tw2 14:00 BP 118 / 73; Pulse 79; Resp 17; Pulse Ox 100% ; sv ED Course: 09:24 Patient arrived in ED. ds1 09:28 Perico Eric MD is Attending Physician. rn 09:31 Vielka Cruz RN is Primary Nurse. tw2 09:34 Placed in gown. Bed in low position. color television console monitor on. Pulse ox on. NIBP on. tw2 09:34 Patient maintains SpO2 saturation greater than 95% on room air. tw2 09:35 Arm band placed on. tw2 09:37 Triage completed. hb 09:42 EKG done, by ED staff, reviewed by Perico Eric MD. em1 09:49 Missed attempt(s): 22 gauge in left upper arm. Bleeding controlled, band aid applied, tw2 catheter tip intact. 10:15 XRAY Chest (1 view) In Process Unspecified. EDMS 10:32 Basic Metabolic Panel Sent. sv 10:32 CBC with Diff Sent. sv 10:32 NT PRO-BNP Sent. sv 10:32 PT-INR Sent. sv 10:32 Troponin (emerg Dept Use Only) Sent. sv 11:34 Mark Walker is Hospitalizing Provider. rn 12:54 Warm blanket given. Pillow given. sv 13:13 Awaiting: unsuccessful attempt to call report at this time. tw2 13:50 No provider procedures requiring assistance completed. Patient admitted, IV remains in tw2 place. Administered Medications: 10:04 Drug: Nitroglycerin 0.4 mg Route: Sublingual; tw2 10:17 Follow up: Response: No adverse reaction; Pain is unchanged, physician notified tw2 10:19 Drug: Zofran (Ondansetron) 4 mg Route: IVP; Site: right forearm; tw2 10:42 Follow up: Response: No adverse reaction tw2 10:21 Drug: morphine 4 mg Route: IVP; Site: right forearm; tw2 10:42 Follow up: Response: No adverse reaction; Pain is decreased; RASS: Alert and Calm (0) tw 10:42 Drug: Aspirin Chewable Tablet 324 mg Route: PO; tw2 12:17 Follow up: Response: No adverse reaction tw2 Outcome: 11:35 Decision to Hospitalize by Provider. rn 13:56 Admitted to Med/surg accompanied by nurse, via wheelchair, Report called to GINA Mendiola tw2 13:56 Condition: stable 13:56 Instructed on the need for admit. 14:18 Patient left the ED. tw2 Signatures: Dispatcher [employer] Tabatha Estrella RN RN sv Sanford, Demi ds1 Perico Eric MD MD rn Martinez, Eric em1 Baxter, Heather, RN RN hb Wise, Tara, RN RN tw2 Corrections: (The following items were deleted from the chart) 10:29 09:30 Pain: Complains of pain in chest Pain radiates to left arm Pain began 10:49 10:23 Home Meds: atorvastatin Oral; 10:49 10:23 Home Meds: isosorbide; 10:49 10:23 Home Meds: morphine 30 mg Oral TbER 1 tab every 8 hours; 10:49 10:23 Home Meds: Plavix Oral; 11:31 10:23 Home Meds: amlodipine-benazepril 10-40 mg Oral cap; 11:31 10:23 Home Meds: Lipitor 40 mg Oral tab 1 tab once daily; 11:31 10:23 Home Meds: Percocet 10-325 mg Oral tab 1 tab every 6 hours; tw2 13:50 13:49 BP 106 / 69; Pulse 83bpm; Resp 17bpm; Pulse Ox 99% RA; tw2 tw2
--- NOTE | 2020-01-27 12:16 | EKG ---
Test Date: 2020-01-27 Test Time: 09:38:29 Auto Mechanic: ARACELY MEASUREMENT RESULTS: Intervals: Rate: 88 NV: 144 QRSD: 64 QT: 350 QTc: 423 [place]: P: 65 NV: 144 QRS: 65 T: 45 INTERPRETIVE STATEMENTS: Normal sinus rhythm Normal ECG Compared to ECG 05/30/2017 06:23:39 No significant changes Electronically Signed On 01-27-20 12:14:58 CDT by Poncho Munoz
--- NOTE | 2020-01-27 12:56 | P.HP ---
Certification for Inpatient Patient admitted to: Observation With expected LOS: <2 Midnights Practitioner: I am a practitioner with admitting privileges, knowledge of patient current condition, hospital course, and medical plan of care. Services: Services provided to patient in accordance with Admission requirements found in Title 42 Section 412.3 of the Code of Federal Regulations Patient History Date of Service: 01/27/20 Reason for admission: Chest pain History of Present Illness: 64-year-old gentleman with a history of coronary artery disease status post stent, history of chronic back pain presented to the emergency department with a complaint of chest pain of onset 2 days ago. Patient described and intermittent chest, located in the anterior chest, no radiates, currently rated at 5/10, relieved by nitroglycerin, aspirin and morphine given in the ED. Patient states he does stress test every year, his last stress test was abnormal which was followed by a cardiac catheterization. Patient stated his lead sprinkler noted some incomplete occlusion which was not stented. His initial troponin in the ED is negative. EKG demonstrate normal sinus rhythm, no ischemic changes. Chest x-ray is unremarkable. Patient is placed under observation for ACS rule out. Allergies No Known Drug Allergies Allergy (Verified 05/29/17 19:28) Unknown No Known Allergies Allergy (Uncoded 10/11/17 18:35) Unknown Home Medications: Aspirin 81 mg PO DAILY 10/03/11 Clopidogrel Bisulfate [Plavix] 75 mg PO DAILY 10/03/11 Hydrocodone/Acetaminophen [Lorcet 10-650 Tablet] 1 each PO QID 10/03/11 Cyclobenzaprine [Flexeril*] 10 mg PO TID 06/23/14 Duloxetine [Cymbalta *] 60 mg PO BID 06/23/14 Gabapentin [Neurontin] 600 mg PO TID 06/23/14 Metoprolol Tartrate [Lopressor*] 50 mg PO BID 06/23/14 Isosorbide Mononitrate [Imdur] 30 mg PO DAILY #30 tab.sr.24h 10/12/14 Nitroglycerin [Nitrostat*] 0.4 mg SL UD PRN #100 tab 10/12/14 Metformin ER [Glucophage ER*] 1,000 mg PO BIDWM tab.sa 06/04/16 Morphine *Extended Release* [MS Contin*] 30 mg PO BID tab 06/04/16 Omeprazole [Prilosec] 40 mg PO DAILY #30 capsule. 06/04/16 glipiZIDE [Glucotrol*] 5 mg PO DAILY WITH BREAKFAST tab 06/04/16 Atorvastatin Calcium [Lipitor] 40 mg PO BEDTIME 05/29/17 - Past Medical/Surgical History Diabetic: Yes -: CAD -: HTN -: depression -: spinal stenosis -: DJD -: osteoarthritis -: hyperglycemia -: GERD -: hyperlipidemia -: Diabetes -: back surg -: 5 stents cardiac -: bunionectomy -: rt 5th finger repair -: laminectomy injury 2* fall -: slime - Family History Mother -: Lung disease, Cancer Notes: verbalized mother Smoked heavily Father -: Cancer, Liver disease Notes: verbalized father ETOH use heavily - Social History Smoking Status: Never smoker Alcohol use: Yes CD- Drugs: No Caffeine use: Yes Review of Systems Other: Patient denies cough or shortness of breath. He denied any diaphoresis or nausea or vomiting. He endorsed back pain. Except as documented, all other systems reviewed and negative. Physical Examination - Physical Exam General: Alert, In no apparent distress, Oriented x3 HEENT: Mucous membr. moist/pink Neck: Supple, JVD not distended Respiratory: Clear to auscultation bilaterally, Normal air movement Cardiovascular: No edema, Regular rate/rhythm, Normal S1 S2 Capillary refill: <2 Seconds Gastrointestinal: Normal bowel sounds, Soft and benign, Non-distended, No tenderness Musculoskeletal: No swelling, No erythema Integumentary: No rashes Neurological: Normal speech, Normal strength at 5/5 x4 extr - Studies Laboratory Data (last 24 hrs) 01/27/20 09:57: PT 13.3 H, INR 1.13 01/27/20 09:57: WBC 5.3, Hgb 16.5, Hct 48.8, Plt Count 360 01/27/20 09:57: Sodium 136, Potassium 4.5, BUN 26 H, Creatinine 1.27, Glucose 164 H Assessment and Plan - Problems (Diagnosis) (1) Chest pain Onset Date: 10/12/14 Current Visit: No Status: Acute (2) CAD (coronary artery disease) Onset Date: 06/25/14 Current Visit: No Status: Acute (3) Diabetes mellitus Onset Date: 06/25/14 Current Visit: No Status: Acute (4) GERD (gastroesophageal reflux disease) Onset Date: 06/25/14 Current Visit: No Status: Acute (5) Hyperlipidemia Onset Date: 06/25/14 Current Visit: No Status: Acute (6) Hypertension Onset Date: 06/25/14 Current Visit: No Status: Acute - Plan Place patient under observation. Trend troponin Treat with Aspirin, Plavix, Lipitor, metoprolol. Obtain echocardiogram Cardiology consult Nuclear stress test in a.m. once patient is chest pain-free. Continue home antihypertensives. Insulin sliding scale for glucose management. - Advance Directives Does patient have a Living Will: No Does patient have a Durable POA for Healthcare: No
[2020-01-27] MEDS ORDERED: HYDROCODONE PO SCH (14:55)
[2020-01-27] MEDS ORDERED: D50W 25 GM/50 ML SYRINGE/VIAL IV PRN (14:55)
[2020-01-27] MEDS ORDERED: GLUCAGON 1 MG/VIAL IM PRN (14:55)
[2020-01-27] MEDS ORDERED: NITROGLYCERIN 0.4 MG/TAB SL PRN ×2 (14:55→16:00)
[2020-01-27] MEDS ORDERED: ACETAMINOPHEN PO SCH (14:55)
[2020-01-27] MEDS: MORPHINE *EXTENDED RELEASE* 15 MG TAB PO SCH ×2 (15:13→21:00)
[2020-01-27] MEDS: MORPHINE 2 MG/ML SYR IV PRN ×2 (15:19→20:59)
[2020-01-27 16:14] LABS: HDL Cholesterol 44 mg/dL (40-60); LDL Cholesterol, Calculated 77 (<130); Troponin I < 0.02 ng/mL (0.0-0.045)
[2020-01-27] MEDS: INSULIN -REGULAR HUMAN 50 UNIT/0.5 ML ML SQ SCH ×2 (16:30→21:00)
[2020-01-27] MEDS ORDERED: HYDROCODONE/APAP 10/325 TAB PO SCH (17:00)
[2020-01-27] MEDS: ENOXAPARIN 40 MG/0.4 ML SQ SCH (17:12)
[2020-01-27 19:45] VITALS: BMI 30.1
[2020-01-28] MEDS: HYDROCODONE/APAP 10/325 TAB PO PRN ×3 (00:12→16:06)
[2020-01-28] MEDS: ONDANSETRON 4 MG/2 ML VIAL IV PRN ×2 (02:49→12:04)
[2020-01-28] MEDS: MORPHINE 2 MG/ML SYR IV PRN (04:31)
[2020-01-28 04:54] VITALS: O2SAT 99
[2020-01-28 05:12] LABS: Absolute Lymphocytes (CBC) 1.7 K/uL (0.7-4.9); Basophils % 0.9 % (0-1.3); Hematocrit 44.4 % (39.6-49.0); Lymphocytes % 35.5 % (15.3-44.8); MPV 8.4 fL (7.6-11.3)
[2020-01-28 05:23] LABS: Potassium 4.4 mmol/L (3.5-5.1)
[2020-01-28] MEDS ORDERED: PANTOPRAZOLE 40MG TABLET PO SCH (07:30)
[2020-01-28] MEDS: INSULIN -REGULAR HUMAN 50 UNIT/0.5 ML ML SQ SCH ×2 (07:30→12:04)
[2020-01-28] MEDS: MORPHINE *EXTENDED RELEASE* 15 MG TAB PO SCH (07:52)
[2020-01-28] MEDS: ENOXAPARIN 40 MG/0.4 ML SQ SCH (07:56)
[2020-01-28] MEDS ORDERED: REGADENOSON 0.4 MG/5 ML SYR IV ONE (08:30)
[2020-01-28] MEDS ORDERED: HOME MED 1 EA UNK (Duloxetine Hcl [Cymbalta] 1 TAB) PO SCH (09:00)
[2020-01-28] MEDS ORDERED: METOPROLOL TAR 50 MG TAB PO SCH (09:00)
[2020-01-28] MEDS ORDERED: ISOSORBIDE MONO SR 30 MG TAB PO SCH (09:00)
[2020-01-28] MEDS ORDERED: CETIRIZINE HCL 5 MG TABLET PO SCH (09:00)
[2020-01-28] MEDS ORDERED: CLOPIDOGREL 75 MG TABLET PO SCH (09:00)
[2020-01-28] MEDS ORDERED: HOME MED 1 EA UNK (Empagliflozin [Jardiance] 1 TAB) PO SCH (09:00)
[2020-01-28] MEDS ORDERED: BUSPIRONE HCL 15 MG TABLET PO SCH (09:00)
[2020-01-28] MEDS ORDERED: ASPIRIN EC 81 MG TAB PO SCH (09:00)
[2020-01-28] MEDS ORDERED: DULOXETINE 30 MG CAP PO SCH (09:00)
[2020-01-28] MEDS ORDERED: HOME MED 1 EA UNK (Omeprazole [Prilosec] 40 MG) PO SCH (09:00)
[2020-01-28] MEDS ORDERED: HOME MED 1 EA UNK (Omeprazole [Prilosec] 1 TAB) PO SCH (09:00)
[2020-01-28] MEDS ORDERED: [UNRECOGNIZED DRUG - REMARK] PO SCH (09:00)
[2020-01-28] MEDS ORDERED: ISOSORBIDE MONONITRATE PO SCH (09:00)
[2020-01-28] MEDS: CYCLOBENZAPRINE 10 MG TAB PO SCH ×2 (10:08→15:28)
--- NOTE | 2020-01-28 10:47 | RAD REPORT ---
EXAM DESCRIPTION: NM - Rest Stress Cardiac Imaging - 01/28/2020 10:38 am CLINICAL HISTORY: Chest pain. COMPARISON: 2014 TECHNIQUE: The patient was administered approximately 10mCi of Tc 99m Sestamibi prior to resting SPE CT imaging of the heart. The patient was then administered approximately 30 mCi of Tc 99m Sestamibi f ollowing exercise or pharmacologic stress. Multiplanar SPECT images were reviewed. FINDINGS: Moderate diminished radiotracer uptake involves the inferior left ventricular myocardium o n rest and stress images There is uniformity of radiotracer uptake involving the remainder of the left ventricular myocardium on rest and stress images. The left ventricular ejection fraction equals 63% IMPRESSION: Moderate apparent fixed perfusion defect involving the inferior left ventricular myocard ium probably could be secondary to attenuation from the diaphragm or an infarct. No evidence of stress-induced ischemia
--- NOTE | 2020-01-28 12:05 | EKG ---
Test Date: 2020-01-27 Test Time: 09:39:02 Electronic Gluer: ARACELY MEASUREMENT RESULTS: Intervals: Rate: 90 NE: 146 QRSD: 72 QT: 346 QTc: 423 [place]: P: 50 NE: 146 QRS: 70 T: 44 INTERPRETIVE STATEMENTS: Normal sinus rhythm Normal ECG Compared to ECG 01/27/2020 09:38:29 No significant changes Electronically Signed On 01-28-20 12:01:41 CDT by Poncho Munoz
--- NOTE | 2020-01-28 13:54 | TREADPHA ---
DX: CORNARY ARTERY DISEASE WITH CHEST PAIN Date of Study: 01/28/2020 Ht: 5' 10 " Wt: 210 lb 0 oz Consulting Physician: FLYNN MEDICATIONS: NORCO, ASPIRIN, LIPITOR, PLAVIX, FLEXERIL, LOVENOX, NOVOLIN-R, GLUCAGEN, IMDUR HISTORY: 64 YEAR OLD MALE PATIENT WITH HISTORY OF MYOCARDIOAL INFARCTION, STENTS TIMES FIVE, NON-INSULIN DEPENDENT DIABETES MELLITUS, HYPERTENSION. ADMITTED FOR CHEST PAIN. PATIENT REPORTS MILD CHEST PAIN, MIDSTERNAL RADIATING TO SHOULDER. PHYSICIAL EXAMINATION: RESTING B.P.: 127/93 RESTING H.R.: 104 RESTING EKG: SINUS TACHYCARDIA, LEFT ATRIAL ENLARGEMENT PROTOCOL: PHARMACOLOGIC EXERCISE TIME: 3:30 B.P. AT [place] STRESS: 102/83 IMPRESSION: STRESS LEXISCAN PERFORMED. CARDIOLITE INJECTED PER PROTOCOL. NO SUPRAVENTRICULAR TACHYCARDIA, NO VENTRICULAR TACHYCARDIA, NO ARRHYTHMIA NOTED. PATIENT REPORTS NO CHANGE IN CHEST PAIN. EXPERIENCED SOME SHORTNESS OF BREATH AND HEADACHE. RESPIRATIONS EVEN NON LABORED. TOLERATED WELL. SEE NUCLEAR MEDICINE REPORT.
--- NOTE | 2020-01-28 16:19 | P.DS ---
Admission Date: 01/27/20 Discharge Date: 01/28/20 Disposition: ROUTINE DISCHARGE Discharge Condition: FAIR Reason for Admission: Chest pain - Problems (1) Chest pain Onset Date: 10/12/14 Current Visit: No Status: Acute (2) CAD (coronary artery disease) Onset Date: 06/25/14 Current Visit: No Status: Acute (3) Diabetes mellitus Onset Date: 06/25/14 Current Visit: No Status: Acute (4) GERD (gastroesophageal reflux disease) Onset Date: 06/25/14 Current Visit: No Status: Acute (5) Hyperlipidemia Onset Date: 06/25/14 Current Visit: No Status: Acute (6) Hypertension Onset Date: 06/25/14 Current Visit: No Status: Acute Brief History of Present Illness: 64-year-old gentleman with a history of coronary artery disease status post stent, history of chronic back pain presented to the emergency department with a complaint of chest pain of onset 2 days ago. Patient described and intermittent chest, located in the anterior chest, no radiates, currently rated at 5/10, relieved by nitroglycerin, aspirin and morphine given in the ED. Patient states he does stress test every year, his last stress test was abnormal which was followed by a cardiac catheterization. Patient stated his cab station attendant noted some incomplete occlusion which was not stented. His initial troponin in the ED is negative. EKG demonstrate normal sinus rhythm, no ischemic changes. Chest x-ray is unremarkable. Patient was placed under observation for ACS rule out. Hospital Course: Troponin trended came back negative. Patient was chest pain-free within 24 hr of hospitalization. Nuclear stress test was performed which reported defect in the inferior portion of the heart and no stress-induced ischemia. Noted patient blood pressure was soft. He is on multiple antihypertensives. He is also on metoprolol 50 mg b.i.d., has been taking Imdur 20 mg b.i.d. at home. Also noted patient is on amlodipine and benzapril. Patient has been informed not to take hydrochlorothiazide, amlodipine and benazepril until his blood pressure is greater than 140. Case discussed with Dr. Munoz. ACS has been ruled out and he recommend discharging patient to follow up with his cab station attendant-Dr. Sethi. I spoke to Dr. Sethi will see patient next week for follow up. Vital Signs/Physical Exam: Temp Pulse Resp BP Pulse Ox 99.0 F 112 H 18 118/64 95 01/28/20 12:00 01/28/20 12:00 01/28/20 16:06 01/28/20 12:00 01/28/20 16:06 General: Alert, In no apparent distress, Oriented x3 HEENT: Mucous membr. moist/pink Neck: Supple Respiratory: Clear to auscultation bilaterally, Normal air movement Cardiovascular: No edema, Regular rate/rhythm, Normal S1 S2 Gastrointestinal: Normal bowel sounds, Soft and benign, No tenderness Musculoskeletal: No swelling, No erythema Integumentary: No rashes Neurological: Normal speech Laboratory Data at Discharge: WBC 4.9 K/uL (4.3-10.9) 01/28/20 04:50 Hgb 15.3 g/dL (13.6-17.9) 01/28/20 04:50 Hct 44.4 % (39.6-49.0) 01/28/20 04:50 Plt Count 255 K/uL (152-406) D 01/28/20 04:50 PT 13.3 SECONDS (9.5-12.5) H 01/27/20 09:57 INR 1.13 01/27/20 09:57 Sodium 138 mmol/L (136-145) 01/28/20 04:50 Potassium 4.4 mmol/L (3.5-5.1) 01/28/20 04:50 BUN 26 mg/dL (7-18) H 01/28/20 04:50 Creatinine 1.10 mg/dL (0.55-1.3) 01/28/20 04:50 Glucose 109 mg/dL (74-106) H 01/28/20 04:50 Troponin I < 0.02 ng/mL (0.0-0.045) 01/27/20 19:24 Triglycerides 107 mg/dL (<150) 01/27/20 15:32 Cholesterol 142 mg/dL (<200) 01/27/20 15:32 HDL Cholesterol 44 mg/dL (40-60) 01/27/20 15:32 Cholesterol/HDL Ratio 3.23 01/27/20 15:32 Home Medications: Albuterol Sulfate [Proair Digihaler] 2 inh PO Q4H PRN 01/27/20 Amlodipine Besylate/Benazepril [Lotrel 10-40 mg Capsule] 1 tab PO DAILY 01/27/20 Aspirin 1 tab PO DAILY 01/27/20 Atorvastatin Calcium [Lipitor] 1 tab PO DAILY 01/27/20 Buspirone HCl 1 tab PO BID 01/27/20 Cetirizine HCl [All Day Allergy] 1 tab PO DAILY 01/27/20 Cholecalciferol (Vitamin D3) [Dialyvite Vitamin D3 Max] 1 tab PO EVERY 7TH DAY 01/27/20 Clopidogrel Bisulfate [Plavix] 1 tab PO DAILY 01/27/20 Cyclobenzaprine HCl 1 tab PO TID 01/27/20 Duloxetine HCl [Cymbalta] 1 tab PO DAILY 01/27/20 Empagliflozin [Jardiance] 1 tab PO DAILY 01/27/20 Empagliflozin [Jardiance] 1 tab PO DAILY 01/27/20 Isosorbide Mononitrate [Ismo] 1 tab PO BID 01/27/20 Metformin HCl [Metformin HCl ER] 1,000 mg PO BID 01/27/20 Metoprolol Tartrate [Lopressor] 1 tab PO BID 01/27/20 Morphine Sulfate [Morphine Sulfate ER] 1 tab PO Q12H 01/27/20 Nitroglycerin [Nitrostat*] 1 tab SL 1X PRN 01/27/20 Omeprazole [Prilosec] 1 tab PO DAILY 01/27/20 Ondansetron HCl [Zofran] 1 tab PO TID PRN 01/27/20 Sub-Q Infusion Pump Accessory [Accu-Chek] 1 strip SQ BID 01/27/20 glipiZIDE [Glipizide] 1 tab PO BID 01/27/20 Hydrocodone 10/APAP 325 [[place] 10/325*] 1 tab PO Q6HP PRN tab 01/28/20 Diet: ADA Activity: Ad harriet Followup: PRANAY SETHI [UNKNOWN] - 1 Week
[2020-01-28 16:50] VITALS: BP 121/64; TEMP 98
[2020-01-28 17:25] LABS: Urine Appearance CLEAR; Urine Bilirubin NEGATIVE (NEG); Urine Blood NEGATIVE (NEG); Urine Color YELLOW; Urine Glucose 3+ (NEG); Urine Protein NEGATIVE (NEG); Urine Specific Gravity 1.015 (1.005-1.030); Urine Urobilinogen 0.2 mg/dL (0.2-1.0); Urine pH 5.5 (5.0-7.0)
[2020-01-28 17:28] LABS: Urine Microscopic Reflex NO UMIC
[2020-01-28] MEDS ORDERED: ATORVASTATIN 40 MG TAB PO SCH (21:00)
--- NOTE | 2020-01-29 05:23 | CON ---
Date of Consultation: 01/28/2020 Mr. Roblero was admitted to Dr. Walker's service on 01/27/2020. Reason For Consultation: Chest pain. History Of Present Illness: Mr. Roblero is a 64-year-old black male. He is a patient of Dr. Sethi. A year ago, had a heart catheterization, showed patent stent, with a 70% stenosis in one of his bloo d vessels, but the decision was to treat it medically. He has a history of 5 stents in the past. He came in with symptoms that are suggestive of chronic stable angina. He denied nausea, vomiting, nessa phoresis, PND, orthopnea, pedal edema, palpitation, or syncope. He has ruled out. So far, his EKG s howed LVH. His troponin was negative. Chest x-ray was negative. He is pain-free now. Stress test which was done today showed a fixed defect in the inferior wall but no ischemia. Echocardiogram show ed a normal ejection fraction. Past Medical History: Hypertension, dyslipidemia, diabetes, coronary artery disease status post 5 st ents. Allergies: NONE. Review of Systems: Negative. Social History: Negative. Family History: Noncontributory. Medications: At home include aspirin, Lipitor, Lotrel, Plavix, Jardiance, inhalers, Imdur, Lopressor , hydrochlorothiazide, metformin, Prilosec, and glipizide. Physical Examination: Vital Signs: Stable. He was afebrile. HEENT: Negative. Neck: Supple with no bruit. Chest: Clear. Cardiac: Exam revealed a regular rhythm and rate with an S4 gallops. No murmurs or rubs. Abdomen: Benign. Extremities: Revealed no clubbing, cyanosis, or edema. Diagnostic Data: Unremarkable. Impression And Plan: Chronic stable angina in a patient with known 5 stents. He has 70% stenosis of one of his vessels. Dr. Sethi decided to treat medically. I agree with the medical regimen for n ow. His echocardiogram is normal. His stress test showed a fixed defect, no ischemia. I do not hav e plan to repeat the heart catheterization on him at this point. I think he can go home with his deidre e medication. I would prefer he increase his metoprolol or increase his Imdur. I will discuss the c ase further with Dr. Walker. His other problems including hypertension, dyslipidemia, and diabetes a re well controlled. ALIS/NA Voice ID: [id number] Report ID: [id number]
--- NOTE | 2020-01-29 09:03 | ECHO ---
HEIGHT: 5 ft 10 in WEIGHT: 210 lb 0 oz DATE OF STUDY: 01/28/[address]: judah finley 2-DIMENSIONAL: YES M.MODE: YES DOPPLER: YES COLOR FLOW: YES TDS: NO PORTABLE: NO DEFINITY: NO BUBBLE STUDY: NO DIAGNOSIS: CORONARY ARTERY DISEASE CARDIAC HISTORY: CATHERIZATION: YES SURGERY: NO PROSTHETIC VALVE: NO PACEMAKER: NO MEASUREMENTS (cm) DIASTOLIC (NORMALS) SYSTOLIC (NORMALS) IVSd 1.0 (0.6-1.2) LA Diam (1.9-4.0) LVEF 78% LVIDd 3.3 (3.5-5.7) LVIDs 1.8 (2.0-3.5) %FS 46% LVPWd 1.0 (0.6-1.2) Ao Diam 3.4 (2.0-3.7) 2 DIMENSIONAL ASSESSMENT: RIGHT ATRIUM: NORMAL LEFT ATRIUM: NORMAL RIGHT VENTRICLE: NORMAL LEFT VENTRICLE: NORMAL TRICUSPID VALVE: NORMAL MITRAL VALVE: NORMAL PULMONIC VALVE: NORMAL AORTIC VALVE: NORMAL PERICARDIAL EFFUSION: NONE AORTIC ROOT: NORMAL LEFT VENTRICULAR WALL MOTION: NORMAL DOPPLER/COLOR FLOW: NORMAL COMMENTS: NORMAL LEFT VENTRICULAR SIZE AND FUNCTION. NO WALL MOTION ABNORMALITY. NO EFFUSION. TECHNOLOGIST: Lebron NATH
== END 2020-01-28 16:45 | disposition home or self-care (01) ==
LOC: ER 09:23 → ERHOLD 12:59 → 4TH 13:57
PROVIDERS: ADMIT Internal Medicine; ATTEND Internal Medicine
DX: I25.118 Atherosclerotic heart disease of native coronary artery with other forms of angina pectoris (principal); I10 Essential (primary) hypertension; E11.65 Type 2 diabetes mellitus with hyperglycemia; K21.9 Gastro-esophageal reflux disease without esophagitis; E78.5 Hyperlipidemia, unspecified; M54.9 Dorsalgia, unspecified; G89.29 Other chronic pain; F32.9 Major depressive disorder, single episode, unspecified; M48.00 Spinal stenosis, site unspecified; M19.90 Unspecified osteoarthritis, unspecified site; I25.2 Old myocardial infarction; Z20.828 Contact with and (suspected) exposure to other viral communicable diseases; Z95.5 Presence of coronary angioplasty implant and graft; Z88.6 Allergy status to analgesic agent; Z79.82 Long term (current) use of aspirin; Z79.02 Long term (current) use of antithrombotics/antiplatelets; Z79.84 Long term (current) use of oral hypoglycemic drugs; Z90.49 Acquired absence of other specified parts of digestive tract; Z80.9 Family history of malignant neoplasm, unspecified
CPT/HCPCS: 93005; 93017; 93306; 85025 ×2; 80048 ×2; 36415 ×2; 85610; 80061; 82947 ×5; 81003; 84484 ×3; 83880; 71045; 78452; 96375; 96374; 99285; U0002; J1650; J2270 ×3; J2785; J2405 ×3; A9500; G0378 ×3

== ENCOUNTER 2021-02-23 12:04 | Emergency (ER) | payer OTHER ==
--- NOTE | 2021-02-23 14:39 | RAD REPORT ---
EXAM DESCRIPTION: RAD - Chest Single View - 02/23/2021 2:18 pm CLINICAL HISTORY: CHEST PAIN COMPARISON: Chest Single View dated 01/27/2020; Chest Single View dated 05/29/2017; Chest Single View dated 06/04/2016; Chest Single View dated 06/03/2016 FINDINGS: Lines: None. Lungs: No evidence of edema or pneumonia. Pleural: No significant pleural effusions or pneumothorax. Cardiac: The heart size is within normal limits. Bones: No acute fractures. Other: IMPRESSION: No acute cardiopulmonary disease.
[2021-02-23 14:43] LABS: Absolute Lymphocytes (CBC) 1.3 K/uL (0.7-4.9); Basophils % 1.5 % (0-1.3); Lymphocytes % 28.3 % (15.3-44.8); MPV 8.4 fL (7.6-11.3)
[2021-02-23 14:44] LABS: Protime INR 1.04
[2021-02-23] MEDS ORDERED: MORPHINE 4 MG/ML SYR ONE (14:49)
[2021-02-23 15:47] LABS: ALT/SGPT 39 U/L (12-78); AST/SGOT 17 U/L (15-37); Albumin 4.3 g/dL (3.4-5.0); Alkaline Phosphatase 85 U/L (45-117); BUN Blood Urea Nitrogen 29 mg/dL (7-18); Bicarbonate 23 mmol/L (21-32); Bilirubin Direct < 0.1 mg/dL (0-0.2); Bilirubin Total 0.4 mg/dL (0.2-1.0); Glucose Level 172 mg/dL (74-106); Magnesium 2.2 mg/dL (1.8-2.4); Potassium 4.7 mmol/L (3.5-5.1); Protein, Total 8.5 g/dL (6.4-8.2); Sodium Level 138 mmol/L (136-145)
[2021-02-23 16:19] LABS: Troponin (Emerg Dept Use Only) < 0.02 ng/mL (0.0-0.045)
[2021-02-23 16:20] LABS: NT PRO-BNP < 5 pg/mL (<125)
--- NOTE | 2021-02-23 16:23 | RAD REPORT ---
EXAM DESCRIPTION: MRI - Lumbar Spine Wo Con - 02/23/2021 3:48 pm CLINICAL HISTORY: Left radiculopathy COMPARISON: 06/18/2012 TECHNIQUE: Sagittal T1-weighted, T2-weighted and T2-STIR weighted sequences were obtained. Axial T1 -weighted and heavily T2-weighted sequenceswere obtained through the lumbar disc levels. FINDINGS: No fracture identified. Conus is normal with no clumping or thickening of the cauda equina. T12-L1 level: No significant findings. L1-2 level: No significant findings. L2-3 level: Mild subligamentous disc bulge with ligamentum flavum facet hypertrophy results in mild c entral spinal stenosis as well as moderate bilateral neural foraminal narrowing. L3-4 level: Broad-based disc bulge with ligamentum flavum facet hypertrophy results in mild central s adeola stenosis and severe bilateral neural foraminal narrowing. Disc height loss. L4-5 level: Endplate edema is present. Disc height loss also noted. Facet and ligamentum flavum hyper trophy with broad-based disc bulge results in moderate right neural foraminal narrowing, severe right lateral recess stenosis, mild central spinal stenosis, and moderate left neural foraminal narrowing. L5-S1 level: Posterior decompression. Facet and ligamentum flavum hypertrophy. Moderate right neural foraminal narrowing and severe left neural foraminal narrowing noted. IMPRESSION: Advanced multilevel degenerative disc disease with predominant abnormality involving the bilateral facets. Central spinal stenosis is mild. There are findings at multiple levels without yash ar culprit identified for the left-sided radiculopathy.
--- NOTE | 2021-02-23 16:24 | RAD REPORT ---
EXAM DESCRIPTION: MRI - Thoracic Spine Wo Contr - 02/23/2021 4:13 pm CLINICAL HISTORY: arm numbness COMPARISON: <Comparisons> FINDINGS: The vertebral body heights and disc spaces are maintained. Marrow pattern of the thoracic spine is within normal limits. Small disc bulge was noted at the T2-3 and T3-4 levels. No central spinal stenosis. No paraspinal mass or hematoma. The thoracic cord is normal in size and signal. IMPRESSION: No acute abnormality identified. No central spinal stenosis or fracture is seen.
--- NOTE | 2021-02-23 17:25 | RAD REPORT ---
EXAM DESCRIPTION: MRI - C Spine Wo Cont - 02/23/2021 5:04 pm CLINICAL HISTORY: Neck pain and numbness to right arm COMPARISON: None. TECHNIQUE: Sagittal T1-weighted, T2-weighted and T2-STIR sequences were obtained as well as axial T2 medic sequence obtained. FINDINGS: Cervical vertebral bodies are normal in height and alignment. No suspicious marrow edema o r marrow replacing process. Cerebellar tonsils and mid-line skull base show no suspicious finding. No significant finding at the C1 and C2 levels. C2-3 level: No significant findings. C3-4 level: Uncovertebral joint hypertrophy results in moderate left neural foraminal narrowing. No c entral spinal stenosis. C4-5 level: Uncovertebral joint hypertrophy with small posterior disc osteophyte complex results in m oderate left neural foraminal narrowing. Right neural foramen is mildly narrowed. No central spinal s tenosis. C5-6 level: Uncovertebral joint hypertrophy with posterior disc osteophyte complex results in severe right neural foraminal narrowing and moderate left neural foraminal narrowing. Mild central spinal st enosis. C7-T1 level: Uncovertebral joint hypertrophy with small posterior disc osteophyte complex results in moderate bilateral neural foraminal narrowing. Cervical cord shows no focal narrowing, expansion or signal abnormality. IMPRESSION: Multilevel cervical spondylosis. At the C5-6 level, there is severe right neural foramin al narrowing which may explain the patient's right-sided radiculopathy.
--- NOTE | 2021-02-23 17:37 | EDPHYS ---
Physician Documentation [facility] Name: Vicente Roblero Age: 65 yrs Sex: Male : 1955 Arrival Date: 02/23/2021 Time: 12:06 Bed 12 Private MD: De Saavedra ED Physician Ruel Barfield HPI: 02/24 16:52 This 65 yrs old Black Male presents to ER via Ambulatory with complaints of Back Pain, kdr Leg Pain, Arm Pain, Shortness Of Breath. 16:52 The patient presents with pain that is acute, with no known mechanism of injury. The kdr symptoms are located in the low back. Onset: The symptoms/episode began/occurred Pain has been waxing and waning for the last 2 weeks. He indicated that when it comes on it is very severe. The pain does not radiate. Associated signs and symptoms: The patient has no apparent associated signs or symptoms. Historical: - Allergies: 02/23 12:22 Stadol; ap3 - PMHx: 12:22 Back pain; cardiac stents x 5; Diabetes - NIDDM; GERD; Hyperlipidemia; Hypertension; ap3 Myocardial infarction; - Immunization history:: Client reports receiving the 2nd dose of the Covid vaccine, Date received: July 2020. - Social history:: Smoking status: Patient denies any tobacco usage or history of. Patient/guardian denies using alcohol, street drugs. ROS: 02/24 17:01 Constitutional: Negative for fever, chills, and weight loss, Eyes: Negative for injury, kdr pain, redness, and discharge, Neck: Negative for injury, pain, and swelling, Cardiovascular: Negative for chest pain, palpitations, and edema, Respiratory: Negative for shortness of breath, cough, wheezing, and pleuritic chest pain, Abdomen/GI: Negative for abdominal pain, nausea, vomiting, diarrhea, and constipation, : Negative for injury, bleeding, discharge, and swelling, MS/Extremity: Negative for injury and deformity, Skin: Negative for injury, rash, and discoloration, Neuro: Negative for headache, weakness, numbness, tingling, and seizure activity. Psych: Negative for depression, anxiety, suicide ideation, homicidal ideation, and hallucinations, Allergy/Immunology: Negative for hives, rash, and allergies, Endocrine: Negative for neck swelling, polydipsia, polyuria, polyphagia, and marked weight changes, Hematologic/Lymphatic: Negative for swollen nodes, abnormal bleeding, and unusual bruising. Back: Positive for decreased range of motion, pain at rest, pain with movement, of the low back area. Exam: 02/23 13:55 ECG was reviewed by the Attending Physician. kdr 02/24 16:53 Constitutional: This is a well developed, well nourished patient who is awake, alert, kdr and in no acute distress. Head/Face: Normocephalic, atraumatic. Eyes: Pupils equal round and reactive to light, extra-ocular motions intact. Lids and lashes normal. Conjunctiva and sclera are non-icteric and not injected. Cornea within normal limits. Periorbital areas with no swelling, redness, or edema. Neck: Trachea midline, no thyromegaly or masses palpated, and no cervical lymphadenopathy. Supple, full range of motion without nuchal rigidity, or vertebral point tenderness. No Meningismus. Chest/axilla: Normal chest wall appearance and motion. Nontender with no deformity. No lesions are appreciated. Cardiovascular: Regular rate and rhythm with a normal S1 and S2. No gallops, murmurs, or rubs. Normal PMI, no JVD. No pulse deficits. Respiratory: Lungs have equal breath sounds bilaterally, clear to auscultation and percussion. No rales, rhonchi or wheezes noted. No increased work of breathing, no retractions or nasal flaring. Back: No spinal tenderness. No costovertebral tenderness. Full range of motion. Skin: Warm, dry with normal turgor. Normal color with no rashes, no lesions, and no evidence of cellulitis. MS/ Extremity: Pulses equal, no cyanosis. Neurovascular intact. Full, normal range of motion. Neuro: Awake and alert, GCS 15, oriented to person, place, time, and situation. Cranial nerves II-XII grossly intact. Motor strength 5/5 in all extremities. Sensory grossly intact. Cerebellar exam normal. Normal gait. Psych: Awake, alert, with orientation to person, place and time. Behavior, mood, and affect are within normal limits. Abdomen/GI: Inspection: obese Bowel sounds: normal, Palpation: soft, nontender. Vital Signs: 02/23 12:20 BP 155 / 103; Pulse 93; Resp 17; Temp 97.8(TE); Pulse Ox 100% on R/A; Weight 88.45 kg; ap3 Height 5 ft. 10 in. (177.80 cm); Pain 9/10; 12:30 BP 135 / 108; Pulse 86; Resp 18; Pulse Ox 100% on R/A; Pain 8/10; ld1 13:36 BP 125 / 79; Pulse 103; Resp 18; Pulse Ox 100% on R/A; Pain 8/10; ld1 16:26 BP 152 / 95; Pulse 99; Resp 18; Pulse Ox 99% on R/A; ld1 17:30 BP 142 / 92; Pulse 98; Resp 18; Pulse Ox 100% on R/A; ld1 12:20 Body Mass Index 27.98 (88.45 kg, 177.80 cm) ap3 MDM: 17:36 Patient medically screened. kdr 02/24 16:53 Data reviewed: vital signs, nurses notes, lab test result(s), radiologic studies. kdr Counseling: I had a detailed discussion with the patient and/or guardian regarding: the historical points, exam findings, and any diagnostic results supporting the discharge/admit diagnosis, lab results, radiology results, the need for outpatient follow up. 02/23 13:13 Order name: Basic Metabolic Panel; Complete Time: 16:59 kdr 02/23 13:13 Order name: CBC with Diff; Complete Time: 15:32 kdr 02/23 13:13 Order name: LFT's; Complete Time: 16:59 kdr 02/23 13:13 Order name: Magnesium; Complete Time: 16:59 kdr 02/23 13:13 Order name: NT PRO-BNP; Complete Time: 16:59 kdr 02/23 13:13 Order name: PT-INR; Complete Time: 15:32 kdr 02/23 13:13 Order name: Troponin (emerg Dept Use Only); Complete Time: 16:59 kdr 02/23 13:13 Order name: XRAY Chest (1 view); Complete Time: 15:32 kdr 02/23 13:13 Order name: EKG; Complete Time: 13:14 kdr 02/23 13:13 Order name: Cardiac monitoring; Complete Time: 13:36 kdr 02/23 13:13 Order name: MRI Lumbar Spine wo Con; Complete Time: 16:59 kdr 02/23 13:17 Order name: C Spine Wo Cont; Complete Time: 17:33 EDMS 02/23 13:17 Order name: Thoracic Spine Wo Contr; Complete Time: 16:59 EDMS 02/23 13:13 Order name: EKG - Nurse/Tech; Complete Time: 13:36 kdr 02/23 13:13 Order name: IV Saline Lock; Complete Time: 14:39 kdr 02/23 13:13 Order name: Labs collected and sent; Complete Time: 14:36 kdr 02/23 13:13 Order name: O2 Per Protocol; Complete Time: 13:23 kdr 02/23 13:13 Order name: O2 Sat Monitoring; Complete Time: 13:24 kdr EC/20 13:55 Rate is 104 beats/min. Rhythm is regular, Sinus tachycardia with No ectopy. QRS [place] is kdr Normal. ND interval is normal. QRS interval is normal. QT interval is normal. Clinical impression: Sinus tachycardia. Administered Medications: 14:29 Drug: morphine 4 mg Route: IM; Site: right deltoid; ld1 14:29 Follow up: Response: No adverse reaction ld1 Disposition Summary: 02/23/21 17:36 Discharge Ordered Location: Home kdr Problem: new kdr Symptoms: have improved kdr Condition: Stable kdr Diagnosis - Radiculopathy, cervical region kdr - Radiculopathy, lumbar region kdr - Chest pain, unspecified kdr Followup: kdr - With: De Saavedra MD - When: 2 - 3 days - Reason: If symptoms return, Further diagnostic work-up, Recheck today's complaints, Continuance of care, Re-evaluation by your physician Discharge Instructions: - Discharge Summary Sheet kdr - Cervical Radiculopathy kdr - Nonspecific Chest Pain, Adult, [id number] kdr Forms: - Medication Reconciliation Form kdr - Thank You Letter kdr - Prescription Opioid Use kdr Prescriptions: - Tramadol 50 mg Oral Tablet - take 1 tablet by ORAL route every 8 hours As needed as needed; 12 tablet; kdr Refills: 0, Product Selection Permitted - Medrol (Justen) 4 mg Oral Tablets, Dose Pack - take 1 tablet by ORAL route as directed - follow package instructions; 1 kdr packet; Refills: 0, Product Selection Permitted Signatures: Dispatcher [employer] [facility] [place] Ruel Barfield MD MD kdr Morenita Suarez RN RN ap3 Dibbern, Maria Alejandra, RN RN ld1
--- NOTE | 2021-02-23 17:37 | ER ---
Nurse's Notes [facility] Name: Vicente Roblero Age: 65 yrs Sex: Male : 1955 Arrival Date: 02/23/2021 Time: 12:06 Bed 12 Private MD: De Saavedra Diagnosis: Radiculopathy, cervical region;Radiculopathy, lumbar region;Chest pain, unspecified Presentation: 02/23 12:20 Chief complaint: Patient states: that pain in his lower back began approx 2 weeks ago. ap3 Patient reports the pain comes and goes, but when he is having pain, he states it is a 10/10. Patient also reports he has had this feeling in the past, and it required him to have a decompression sx. Coronavirus screen: At this time, the client does not indicate any symptoms associated with coronavirus-19. Ebola Screen: No symptoms or risks identified at this time. Initial Sepsis Screen: Does the patient meet any 2 criteria? No. Patient's initial sepsis screen is negative. Does the patient have a suspected source of infection? No. Patient's initial sepsis screen is negative. Risk Assessment: Do you want to hurt yourself or someone else? Patient reports no desire to harm self or others. Onset of symptoms was February 10, 2021. 12:20 Method Of Arrival: Ambulatory ap3 12:20 Acuity: IRWIN 4 ap3 Triage Assessment: 12:22 General: Appears uncomfortable, Behavior is calm, cooperative. Pain: Complains of pain ap3 in low back area Pain radiates to right leg and left leg Pain currently is 9 out of 10 on a pain scale. at worst was 10 out of 10 on a pain scale. Quality of pain is described as shooting, throbbing, Alleviated by rest, Aggravated by repositioning. Neuro: Level of Consciousness is awake, alert, obeys commands, Oriented to person, place, time, situation, Appropriate for age Moves all extremities. Gait is steady, Speech is normal, Facial symmetry appears normal. Cardiovascular: Patient's skin is warm and dry. Respiratory: Airway is patent Respiratory effort is even, unlabored. Musculoskeletal: Range of motion: intact in all extremities, patient reports being stiff after being in one position for too long, and it takes a little bit for him to "loosen up". Historical: - Allergies: 12:22 Stadol; ap3 - PMHx: 12:22 Back pain; cardiac stents x 5; Diabetes - NIDDM; GERD; Hyperlipidemia; Hypertension; ap3 Myocardial infarction; - Immunization history:: Client reports receiving the 2nd dose of the Covid vaccine, Date received: July 2020. - Social history:: Smoking status: Patient denies any tobacco usage or history of. Patient/guardian denies using alcohol, street drugs. Screenin:24 Abuse screen: Denies threats or abuse. Nutritional screening: No deficits noted. ap3 Tuberculosis screening: No symptoms or risk factors identified. Fall Risk None identified. Assessment: 12:30 General: Appears in no apparent distress. comfortable, Behavior is calm, cooperative, ld1 appropriate for age. Pain: Complains of pain in left arm Pain does not radiate. Pain currently is 8 out of 10 on a pain scale. Quality of pain is described as throbbing, Pain began two weeks ago Is continuous. Neuro: Level of Consciousness is awake, alert, obeys commands, Oriented to person, place, time, situation. Cardiovascular: Capillary refill < 3 seconds Patient's skin is warm and dry. Respiratory: Airway is patent Respiratory effort is even, unlabored, Respiratory pattern is regular, symmetrical. GI: Abdomen is flat, non-distended. : No signs and/or symptoms were reported regarding the genitourinary system. EENT: No signs and/or symptoms were reported regarding the EENT system. Derm: No signs and/or symptoms reported regarding the dermatologic system. Musculoskeletal: Reports pain in back. 13:36 Reassessment: Patient appears in no apparent distress at this time. Patient and/or ld1 family updated on plan of care and expected duration. Pain level reassessed. Patient is alert, oriented x 3, equal unlabored respirations, skin warm/dry/pink. Vital Signs: 12:20 BP 155 / 103; Pulse 93; Resp 17; Temp 97.8(TE); Pulse Ox 100% on R/A; Weight 88.45 kg; ap3 Height 5 ft. 10 in. (177.80 cm); Pain 9/10; 12:30 BP 135 / 108; Pulse 86; Resp 18; Pulse Ox 100% on R/A; Pain 8/10; ld1 13:36 BP 125 / 79; Pulse 103; Resp 18; Pulse Ox 100% on R/A; Pain 8/10; ld1 16:26 BP 152 / 95; Pulse 99; Resp 18; Pulse Ox 99% on R/A; ld1 17:30 BP 142 / 92; Pulse 98; Resp 18; Pulse Ox 100% on R/A; ld1 12:20 Body Mass Index 27.98 (88.45 kg, 177.80 cm) ap3 ED Course: 12:06 Patient arrived in ED. as 12:07 De Saavedra MD is Private Physician. as 12:21 Triage completed. ap3 12:25 Arm band placed on right wrist. ap3 12:26 Ruel Barfield MD is Attending Physician. kdr 12:27 Maria Alejandra Kelley, RN is Primary Nurse. ld1 12:30 Patient has correct armband on for positive identification. Placed in gown. Bed in low ld1 position. Call light in reach. Side rails up X2. laboratory monitor on. Pulse ox on. NIBP on. Door closed. Noise minimized. Warm blanket given. 12:30 No provider procedures requiring assistance completed. ld1 14:18 XRAY Chest (1 view) In Process Unspecified. EDMS 15:47 MRI Lumbar Spine wo Con In Process Unspecified. EDMS 15:48 C Spine Wo Cont In Process Unspecified. EDMS 15:48 Thoracic Spine Wo Contr In Process Unspecified. EDMS 17:35 De Saavedra MD is Referral Physician. kdr 17:56 Patient did not have IV access during this emergency room visit. ld1 Administered Medications: 14:29 Drug: morphine 4 mg Route: IM; Site: right deltoid; ld1 14:29 Follow up: Response: No adverse reaction ld1 Outcome: 17:36 Discharge ordered by . kdr 17:56 Discharged to home ambulatory. ld1 17:56 Condition: stable 17:56 Discharge instructions given to patient, family, Instructed on discharge instructions, follow up and referral plans. medication usage, Demonstrated understanding of instructions, follow-up care, medications, Prescriptions given X 2. 17:56 Patient left the ED. ld1 Signatures: Dispatcher [employer] EDMS Ruel Barfield MD MD kdr Luz Montero Amanda, RN RN ap3 Maria Alejandra Kelley, GINA RN ld1
[2021-02-23 18:12] VITALS: TEMP 97.8
[2021-02-23 18:17] VITALS: BP 142/92; O2SAT 100
== END 2021-02-23 17:56 | disposition home or self-care (01) ==
LOC: ER 12:04
DX: M54.16 Radiculopathy, lumbar region (principal); M54.12 Radiculopathy, cervical region; R07.9 Chest pain, unspecified; I10 Essential (primary) hypertension; I25.2 Old myocardial infarction; Z95.818 Presence of other cardiac implants and grafts; Z88.5 Allergy status to narcotic agent
CPT/HCPCS: 36415; 71045; 72141; 72146; 72148; 80048; 80076; 83735; 83880; 84484; 85025; 85610; 93005

== ENCOUNTER 2021-04-25 12:32 | Emergency (ER) | payer OTHER ==
--- OUTSIDE RECORDS SUMMARY | 2021-04-25 12:36 | XMS REPORT | Continuity of Care Document ---
:1955 Author Organization [facility] t Address [address] [place] [address] Care Team Providers Name Role Phone ADAM Attending Clinician Unavailable Payers Payer Name Policy Type Policy Number Effective Date Expiration Date Doug KERR [employer] [id number] 2011 00:00:00 Problems This patient has no known problems. Allergies, Adverse Reactions, Alerts Allergy Allergy Status Severity Reaction(s) Onset Inactive Treating Comm ents Source Name Type Date Date Clinician massiel MONCADA Active [facility] nol 01-24 [place] 00:00: [address] Medications This patient has no known medications. Procedures This patient has no known procedures. Encounters Start End Encounter Admission Attending Care Care Encounter Source Date/Time Date/Time Type Type Clinicians Facility Department ID 2021-03-10 Outpatient [facility] [id number] [place] 09:50:33 [facility] 2021-03-10 Outpatient [facility] [id number] [place] 09:48:32 [facility] 2021-02-25 Outpatient ADAM [facility] [id number] [place] 15:35:12 [facility] Results Test Description Test Time Test Comments [...] code = LDL) MG/DL 0-99 BASIC METABOLIC [id number] 07:21:00 Test Item Value Reference Range Interpretation [...] code = 9.9 MG/DL 8.4-10.2 N CA) [id number] 07:21:00 Test Item Value Reference Range Interpretation Comments LIPASE (test code = LIP) 65 UNITS/L 23-300 N [id number] 07:21:00 Test Item Value Reference Range Interpretation Comments MAGNESIUM (test code = MAG) 2.2 MG/DL 1.6-2.3 N PROTHROMBIN [id number] 07:21:00 Test Item Value Reference Range Interpretation [...] ibrahima embolism. 3.0 - 4.5 Comments to Fringe [facility]: WILL BRING TO THE LABPTT [id number] 07:21:00 Test Item Value Reference Range Interpretation Comments PTT ACTIVATED (test code = APTT) 32.9 SECONDS 22.0-33.0 N Comments to Fringe Weaver: WILL BRING TO THE LABBASIC METABOLIC [id number] 07:20:00 Test Item Value Reference Range Interpretation [...] CALCIUM (test code = MG/DL 8.7-9.7 CA) [id number] 07:20:00 Test Item Value Reference Range Interpretation Comments LIPASE (test code = LIP) 65 UNITS/L 23-300 N [id number] 07:20:00 Test Item Value Reference Range Interpretation Comments MAGNESIUM (test code = MAG) MG/DL 1.6-2.3 BASIC METABOLIC [id number] 07:18:00 Test Item Value Reference Range Interpretation [...] CALCIUM (test code = CA) MG/DL 8.7-9.7 [id number] 07:18:00 Test Item Value Reference Range Interpretation Comments LIPASE (test code = LIP) UNITS/L 23-300 [id number] 07:18:00 Test Item Value Reference Range Interpretation Comments MAGNESIUM (test code = MAG) MG/DL 1.6-2.3 BASIC METABOLIC [id number] 07:17:00 Test Item Value Reference Range Interpretation [...] CALCIUM (test code = CA) MG/DL 8.7-9.7 [id number] 07:17:00 Test Item Value Reference Range Interpretation Comments LIPASE (test code = LIP) UNITS/L 23-300 [id number] 07:17:00 Test Item Value Reference Range Interpretation Comments MAGNESIUM (test code = MAG) MG/DL 1.6-2.3 CBC W/AUTO [id number] 07:07:00 Test Item Value Reference Range Interpretation [...]
[2021-04-25 12:59] LABS: Absolute Lymphocytes (CBC) 1.2 K/uL (0.7-4.9); Hematocrit 44.9 % (39.6-49.0); Lymphocytes % 30.2 % (15.3-44.8); MPV 7.7 fL (7.6-11.3); RBC Red Blood Cell Count 4.79 M/uL (4.33-5.43)
[2021-04-25 13:06] LABS: Protime INR 0.99
[2021-04-25 13:32] LABS: ALT/SGPT 30 U/L (12-78); AST/SGOT 14 U/L (15-37); Albumin 3.9 g/dL (3.4-5.0); Alkaline Phosphatase 85 U/L (45-117); BUN Blood Urea Nitrogen 24 mg/dL (7-18); Bicarbonate 26 mmol/L (21-32); Bilirubin Direct < 0.1 mg/dL (0-0.2); Bilirubin Total 0.3 mg/dL (0.2-1.0); Glucose Level 146 mg/dL (74-106); Magnesium 2.2 mg/dL (1.8-2.4); Potassium 4.2 mmol/L (3.5-5.1); Protein, Total 7.8 g/dL (6.4-8.2); Sodium Level 138 mmol/L (136-145); Troponin (Emerg Dept Use Only) < 0.02 ng/mL (0.0-0.045)
--- NOTE | 2021-04-25 13:52 | RAD REPORT ---
EXAM DESCRIPTION: CT - Head Brain Wo Cont - 04/25/2021 1:08 pm CLINICAL HISTORY: SEIZURE COMPARISON: Ct Stroke Brain Wo Cont dated 05/29/2017 TECHNIQUE: Axial 5 mm thick images of the head were obtained without IV contrast. All CT scans are performed using dose optimization technique as appropriate and may include automated exposure control or mA/KV adjustment according to patient size. FINDINGS: No intracranial hemorrhage, mass, edema or shift of mid-line structures. No acute infarcti on changes seen. No abnormal extra-axial fluid collections. Ventricles are normal. Mastoid air cells and visualized portions of the paranasal sinuses are clear. No acute bony findings. No significant change from comparison. IMPRESSION: Negative non-contrast CT head examination.
[2021-04-25 17:44] LABS: Barbiturates NEGATIVE (NEGATIVE); Benzodiazepines POSITIVE (NEGATIVE); Cocaine NEGATIVE (NEGATIVE); METHAMPHETAM NEGATIVE (NEGATIVE); Methadone NEGATIVE (NEGATIVE); Opiates POSITIVE (NEGATIVE); Phencyclidine NEGATIVE (NEGATIVE); THC Cannibis NEGATIVE (NEGATIVE)
--- NOTE | 2021-04-25 18:01 | EDPHYS ---
Physician Documentation [facility] Name: Vicente Roblero Age: 65 yrs Sex: Male : 1955 Arrival Date: 04/25/2021 Time: 12:39 Bed 19 Private MD: ED Physician Jonn Owens HPI: 04/25 12:40 This 65 yrs old Black Male presents to ER via Unassigned with complaints of Seizure. cp 12:40 The patient presents with a history of multiple seizures, a total of 3, that last an cp unknown period of time. Character of seizure(s): Loss of consciousness: the patient experienced loss of consciousness, brief, Motor activity: generalized, shaking all over, Incontinence: none. Seizure Hx: Last seizure: The patient's last seizure was approximately 7 year(s) ago, reportedly occurred after learning of passing of friend. 12:40 EMS care: versed, IV, 5 mg(s). cp 12:40 Associated injury: The patient did not suffer any apparent associated injury. Current cp symptoms: decreased level of consciousness, is sleeping but easy to arouse. Historical: - Allergies: 12:48 Stadol; eo2 - PMHx: 12:48 Back pain; cardiac stents x 5; Diabetes - NIDDM; GERD; Hyperlipidemia; Hypertension; eo2 Myocardial infarction; - Immunization history:: Adult Immunizations up to date, Client reports receiving the 2nd dose of the Covid vaccine. - Social history:: Smoking status: Patient denies any tobacco usage or history of. Patient/guardian denies using alcohol, street drugs. ROS: 12:45 Constitutional: Negative for body aches, chills, fever, poor PO intake. cp 12:45 Eyes: Negative for injury, pain, redness, and discharge. cp 12:45 Cardiovascular: Negative for chest pain, palpitations. 12:45 Respiratory: Negative for cough, shortness of breath, wheezing. 12:45 Abdomen/GI: Negative for abdominal pain, nausea, vomiting, and diarrhea. 12:45 Back: Positive for pain at rest, pain with movement. 12:45 Neuro: Positive for seizure activity. 12:45 All other systems are negative. Exam: 12:35 ECG was reviewed by the Attending Physician. cp 12:50 Constitutional: The patient appears non-diaphoretic, non-toxic, well developed, well cp nourished, sleep but easily aroused 12:50 Head/Face: Normocephalic, atraumatic. cp 12:50 Eyes: Periorbital structures: appear normal, Pupils: constricted, bilaterally, Conjunctiva: normal, no exudate, no injection, Sclera: no appreciated abnormality, Lids and lashes: appear normal, bilaterally. 12:50 ENT: External ear(s): are unremarkable, Ear canal(s): are normal, clear, TM's: dullness, bilaterally, Nose: is normal, Mouth: Lips: moist, Oral mucosa: moist, Posterior pharynx: Airway: no evidence of obstruction, patent. 12:50 Neck: ROM/movement: is normal, is supple, no meningismus, no nuchal rigidity. 12:50 Chest/axilla: Inspection: normal, Palpation: is normal, no crepitus, no tenderness. 12:50 Cardiovascular: Rate: normal, Rhythm: regular, Edema: is not appreciated, JVD: is not appreciated. 12:50 Respiratory: the patient does not display signs of respiratory distress, Respirations: normal, no use of accessory muscles, no retractions, labored breathing, is not present, Breath sounds: are clear throughout, no decreased breath sounds, no stridor, no wheezing. 12:50 Abdomen/GI: Inspection: abdomen appears normal, Palpation: abdomen is soft and non-tender. 12:50 Back: pain, that is moderate. 12:50 Neuro: Orientation: to person, place \T\ time. Mentation: able to follow commands, sleepy, Motor: moves all fours, strength is normal, Sensation: no obvious gross deficits. Vital Signs: 12:43 BP 135 / 103; Pulse 90; Resp 19; Pulse Ox 97% ; Weight 88.45 kg; Height 5 ft. 10 in. eo2 (177.80 cm); Pain 7/10; 13:37 BP 122 / 96; Pulse 78; Resp 11; Pulse Ox 98% on R/A; ap3 14:27 BP 140 / 99; Pulse 74; Resp 14; Pulse Ox 97% on R/A; ap3 15:53 BP 144 / 100; Pulse 79; Pulse Ox 97% on R/A; ap3 16:30 BP 136 / 102; Pulse 79; Resp 14; Pulse Ox 99% ; Pain 7/10; eo2 17:00 BP 154 / 104; Pulse 84; Resp 14; Pulse Ox 99% ; eo2 12:43 Body Mass Index 27.98 (88.45 kg, 177.80 cm) eo2 [place] Coma Score: 12:48 Eye Response: spontaneous(4). Verbal Response: oriented(5). Motor Response: obeys eo2 commands(6). Total: 15. MDM: 12:41 Patient medically screened. cp 13:00 Differential diagnosis: cerebral vascular accident, drug overdose, cardiac arrhythmia, cp seizure. 17:58 Data reviewed: vital signs, nurses notes, lab test result(s), EKG, radiologic studies, cp CT scan, and as a result, I will discharge patient. Test interpretation: by ED physician or midlevel provider: ECG. Counseling: I had a detailed discussion with the patient and/or guardian regarding: the historical points, exam findings, and any diagnostic results supporting the discharge/admit diagnosis, lab results, radiology results, the need for outpatient follow up, a neurologist. 18:00 Response to treatment: the patient's symptoms have markedly improved after treatment, cp and as a result, I will discharge patient. 18:00 ED course: No seizure activity observed while monitoring patient in ED. Family member cp reports patient learned of passing of family member today prior to observed seizures today. 04/25 12:41 Order name: Acetaminophen; Complete Time: 13:56 04/25 12:41 Order name: Basic Metabolic Panel; Complete Time: 13:56 04/25 15:26 Interpretation: Normal except: GLUC 146; BUN 24; GFR 70. 04/25 12:41 Order name: CBC with Diff; Complete Time: 13:56 04/25 15:26 Interpretation: Normal except: WBC 4.10. 04/25 12:41 Order name: ETOH Level; Complete Time: 17:17 04/25 12:41 Order name: Hepatic Function; Complete Time: 13:56 04/25 15:27 Interpretation: Normal except: AST 14; GLOB 3.9; A/G 1.0. 04/25 12:41 Order name: PT-INR; Complete Time: 13:56 04/25 12:41 Order name: CT Head Brain wo Cont; Complete Time: 13:56 04/25 13:57 Interpretation: Report reviewed. 04/25 12:41 Order name: Ptt, Activated; Complete Time: 13:56 cp 04/25 12:41 Order name: Salicylate; Complete Time: 13:56 cp 04/25 12:41 Order name: Urine Drug Screen; Complete Time: 17:55 cp 04/25 12:41 Order name: EKG; Complete Time: 12:42 cp 04/25 12:41 Order name: Magnesium; Complete Time: 13:56 cp 04/25 12:41 Order name: Troponin (emerg Dept Use Only); Complete Time: 13:56 cp 04/25 12:41 Order name: EKG - Nurse/Tech; Complete Time: 12:47 cp 04/25 12:41 Order name: IV Saline Lock; Complete Time: 12:53 cp 04/25 12:41 Order name: Labs collected and sent; Complete Time: 12:53 cp 04/25 12:41 Order name: Seizure Precautions; Complete Time: 12:47 cp EC:35 Rate is 86 beats/min. Rhythm is regular. MS interval is normal. QRS interval is normal. cp QT interval is normal. Interpreted by me. Reviewed by me. Administered Medications: 14:03 Drug: NS 0.9% 1000 ml Route: IV; Rate: 100 ml/hr; Site: right forearm; ap3 18:00 Follow up: Response: No adverse reaction; IV Status: Completed infusion; Order to eo2 discontinue infusion; IV Intake: 450ml Disposition Summary: 04/25/21 18:00 Discharge Ordered Location: Home cp Problem: new cp Symptoms: are resolved cp Condition: Stable cp Diagnosis - Other seizures cp Followup: cp - With: Raghu Garcia MD - When: 2 - 3 days - Reason: Recheck today's complaints Discharge Instructions: - Discharge Summary Sheet cp - Seizure, Adult cp Forms: - Medication Reconciliation Form cp - Thank You Letter cp - Antibiotic Education cp - Prescription Opioid Use cp Addendum: 04/26/2021 18:51 Co-signature as Attending Physician, Jonn Owens MD I agree with the assessment and c leiva plan of care. Signatures: Dispatcher [employer] Jonn Lemos MD MD cha Attema, Lee, RADIAL ARM SAW OPERATOR-C RADIAL ARM SAW OPERATOR-Cla1 Jonn Haji PA PA cp Morenita Suarez RN RN ap3 Owoade, Dinora, RN RN eo2
--- NOTE | 2021-04-25 18:01 | ER ---
Nurse's Notes [facility] Name: Vicente Roblero Age: 65 yrs Sex: Male : 1955 Arrival Date: 04/25/2021 Time: 12:39 Bed 19 Private MD: Diagnosis: Other seizures Presentation: 04/25 12:43 Chief complaint: EMS states: Pt [facility] with reports 3 seizure episodes witnessed by eo2 family and one witnessed by EMS. Pt given versed 5mg IV \T\1149. Pt presently aaox3. Chief complaint:. Coronavirus screen: Vaccine status: Patient reports receiving the 2nd dose of the covid vaccine. Ebola Screen: Patient negative for fever greater than or equal to 101.5 degrees Fahrenheit, and additional compatible Ebola Virus Disease symptoms Patient denies exposure to infectious person. Patient denies travel to an Ebola-affected area in the 21 days before illness onset. No symptoms or risks identified at this time. Initial Sepsis Screen: Does the patient meet any 2 criteria? No. Patient's initial sepsis screen is negative. Does the patient have a suspected source of infection? No. Patient's initial sepsis screen is negative. Risk Assessment: Do you want to hurt yourself or someone else? Patient reports no desire to harm self or others. Onset of symptoms was April 25, 2021. 12:43 Method Of Arrival: EMS: [facility] eo2 12:43 Acuity: IRWIN 2 eo2 Triage Assessment: 12:48 General: Appears in no apparent distress. Behavior is calm, cooperative. Pain: eo2 Complains of pain in lower. Neuro: Level of Consciousness is awake, alert, obeys commands, Oriented to person, place, time, situation, Seizure activity reported prior to arrival. 12:48 Cardiovascular: No deficits noted. Denies chest pain, shortness of breath. Respiratory: eo2 No deficits noted. Airway is patent Breath sounds are clear bilaterally. Musculoskeletal: Circulation, motion, and sensation intact. Range of motion: intact in all extremities. Historical: - Allergies: 12:48 Stadol; eo2 - PMHx: 12:48 Back pain; cardiac stents x 5; Diabetes - NIDDM; GERD; Hyperlipidemia; Hypertension; eo2 Myocardial infarction; - Immunization history:: Adult Immunizations up to date, Client reports receiving the 2nd dose of the Covid vaccine. - Social history:: Smoking status: Patient denies any tobacco usage or history of. Patient/guardian denies using alcohol, street drugs. Screenin:15 Abuse screen: Denies threats or abuse. Nutritional screening: No deficits noted. ap3 Tuberculosis screening: No symptoms or risk factors identified. Fall Risk Fall in past 12 months (25 points). Secondary diagnosis (15 points) seizures, IV access (20 points). Ambulatory Aid- None/Bed Rest/Nurse Assist (0 pts). Gait- Impaired (20 pts.). Mental Status- Overestimates/Forgets Limitations (15 pts.). Total Wynne Fall Scale indicates High Risk Score (45 or more points). Fall prevention measures have been instituted. Side Rails Up X 2 Placed Close to Nursing Station Frequent Obs/Assessments Occuring As available patient and family educated on Fall Prevention Program and Strategies. Assessment: 13:37 General: Appears comfortable, Behavior is drowsy. Neuro: Level of Consciousness is ap3 lethargic. Respiratory: Airway is patent Respiratory effort is even, unlabored. 15:53 Reassessment: Patient and/or family updated on plan of care and expected duration. Pain ap3 level reassessed. Patient is alert, oriented x 3, equal unlabored respirations, skin warm/dry/pink. remains at bedside. Vital Signs: 12:43 BP 135 / 103; Pulse 90; Resp 19; Pulse Ox 97% ; Weight 88.45 kg; Height 5 ft. 10 in. eo2 (177.80 cm); Pain 7/10; 13:37 BP 122 / 96; Pulse 78; Resp 11; Pulse Ox 98% on R/A; ap3 14:27 BP 140 / 99; Pulse 74; Resp 14; Pulse Ox 97% on R/A; ap3 15:53 BP 144 / 100; Pulse 79; Pulse Ox 97% on R/A; ap3 16:30 BP 136 / 102; Pulse 79; Resp 14; Pulse Ox 99% ; Pain 7/10; eo2 17:00 BP 154 / 104; Pulse 84; Resp 14; Pulse Ox 99% ; eo2 12:43 Body Mass Index 27.98 (88.45 kg, 177.80 cm) eo2 [place] Coma Score: 12:48 Eye Response: spontaneous(4). Verbal Response: oriented(5). Motor Response: obeys eo2 commands(6). Total: 15. ED Course: 12:39 Patient arrived in ED. jl7 12:39 Jonn Haji PA is PHCP. cp 12:39 Jonn Owens MD is Attending Physician. cp 12:43 Dinora Ellis, GINA is Primary Nurse. eo2 12:48 Triage completed. eo2 12:52 Maintain EMS IV. Dressing intact. Good blood return noted. Site clean \T\ dry. Gauge \T\ dh 4 site: 20 gauge right forearm. 13:08 CT Head Brain wo Cont In Process Unspecified. EDMS 13:15 Patient moved back from CT. ap3 13:15 Arm band placed on right wrist. ap3 13:15 Patient has correct armband on for positive identification. Bed in low position. Call ap3 light in reach. Side rails up X 1. Seizure precautions initiated. school lunch monitor on. Pulse ox on. NIBP on. 13:36 Pt visited by . ap3 14:25 No provider procedures requiring assistance completed. ap3 17:59 Raghu Garcia MD is Referral Physician. cp 18:45 IV discontinued, intact, bleeding controlled, No redness/swelling at site. Pressure jl7 dressing applied. Administered Medications: 14:03 Drug: NS 0.9% 1000 ml Route: IV; Rate: 100 ml/hr; Site: right forearm; ap3 18:00 Follow up: Response: No adverse reaction; IV Status: Completed infusion; Order to eo2 discontinue infusion; IV Intake: 450ml Intake: 18:00 IV: 450ml; Total: 450ml. eo2 Outcome: 18:00 Discharge ordered by . cp 18:44 Discharged to home via wheelchair. jl7 18:44 Condition: stable 18:44 Discharge instructions given to patient, family, Instructed on discharge instructions, follow up and referral plans. Demonstrated understanding of instructions, follow-up care. 18:45 Patient left the ED. jl7 Signatures: Dispatcher [employer] EDLA Jonn Haji PA PA cp Leal, Jahala RN GINA jl7 Morenita Suarez RN RN ap3 [facility] Dinora Ellis RN RN eo2
[2021-04-25 18:59] VITALS: O2SAT 99
[2021-04-25 19:01] VITALS: BP 154/104
--- NOTE | 2021-04-26 07:36 | EKG ---
Test Date: 2021-04-25 Test Time: 12:29:16 Mobile Architect: LAW MEASUREMENT RESULTS: Intervals: Rate: 86 WI: 150 QRSD: 80 QT: 376 QTc: 449 [place]: P: 48 WI: 150 QRS: 65 T: 34 INTERPRETIVE STATEMENTS: Normal sinus rhythm Normal ECG Compared to ECG 02/23/2021 13:34:33 Sinus tachycardia no longer present Electronically Signed On 04-26-21 07:35:02 DIE TRIMMER by Poncho Munoz
== END 2021-04-25 18:45 | disposition home or self-care (01) ==
LOC: ER 12:32
DX: G40.89 Other seizures (principal); I10 Essential (primary) hypertension; Z95.818 Presence of other cardiac implants and grafts; Z88.5 Allergy status to narcotic agent
CPT/HCPCS: 36415; 70450; 80048; 80076; 80307; 80320; 80329; 83735; 84484; 85025; 85610; 85730; 93005; 96360; 96361; 99285

== ENCOUNTER 2022-09-22 10:07 | Day surgery (SDC) | payer OTHER ==
[2022-09-21 10:49] LABS: Absolute Lymphocytes (CBC) 1.2 K/uL (0.7-4.9); Lymphocytes % 25.3 % (15.3-44.8); MCV 94.7 fL (80-100); MPV 7.6 fL (7.6-11.3); RBC Red Blood Cell Count 4.75 M/uL (4.33-5.43)
[2022-09-21 11:03] LABS: Potassium 4.8 mEq/L (3.5-5.1)
[2022-09-22] MEDS ORDERED: NA CHLORIDE 0.9% 1,000 ML ONE (10:39)
[2022-09-22 11:05] VITALS: O2SAT 98
[2022-09-22] MEDS ORDERED: MIDAZOLAM HCL 2 MG/2 ML INJ ONE (11:31)
[2022-09-22] MEDS ORDERED: propofoL 200 MG/20 ML VIAL IV ONE (11:31)
[2022-09-22] MEDS ORDERED: BUPIVACAINE 0.5% PF 10 ML VIAL ONE (11:41)
[2022-09-22 12:21] VITALS: BP 105/81; TEMP 97
--- NOTE | 2022-09-22 12:44 | RAD REPORT ---
EXAM DESCRIPTION: RAD - Fluoroscopy <1 Hour - 09/22/2022 12:12 pm CLINICAL HISTORY: LEFT HIP DIAG INJECTION COMPARISON: No comparisons FINDINGS: Fluoroscopy time: 0.1 minutes.
--- NOTE | 2022-09-22 22:10 | OP ---
Date of Procedure: 09/22/2022 Surgeon: Haroon Strong MD Preoperative Diagnosis: Left hip pain with significant low back pain overlay probable. Postoperative Diagnosis: Left hip pain with significant low back pain overlay probable. Procedure: Left hip diagnostic injection using fluoroscopy. Estimated Blood Loss: 0 cc. Complications: There were no complications. Indications For Operation: Mr. Roblero is a 67-year-old male who unfortunately has had significant martín unt of difficulty with regard to his hips and his back. Some time ago, he was diagnosed with AVN of both hips, which was treated with cord decompression by me. Unfortunately, it appears that he had an excellent result from both those, although he has started complaining now of bilateral hip pain. He has had extensive history with his low back, including multiple surgical procedures and gentle movem ent of his hip does not cause that much pain, although now he does have some changes of arthritis in both hips. This is a difficult clinical decision making process as total hip arthroplasty is indicat ed for arthritis, but unsure how much his hip arthritis is actually causing with regard to pain and d isability. Risks, benefits, and alternatives to this injection have been discussed with him. He sta shirin he understands things as presented, wished to proceed. Description Of Procedure: Patient was taken to the operating room and placed in supine position. Se dation was achieved by Anesthesia. His left hip was then prepped and blocked out in standard fashion . C-arm was brought into ensure good view of the hip. The hip itself was marked out with a marker a nd slightly lateral to that, a 22-gauge spinal needle was then placed down into the hip until it cont acts bone. This is a slight angle to allow for placement of the needle along the head and neck regio n. The local anesthetic was then injected and the needle was removed without difficulty and was plac ed in a Band-Aid, taken to recovery room. SE/MODL Voice ID: [id number] Report ID: [id number]
== END 2022-09-22 12:40 | disposition home or self-care (01) ==
LOC: OR 10:07
PROVIDERS: ATTEND Orthopaedic Surgery
PROC: 3E0U3BZ Introduction of Anesthetic Agent into Joints, Percutaneous Approach (ICD-10-PCS; principal; 2022-09-22 11:30)
DX: M25.552 Pain in left hip (principal); M54.50 Low back pain, unspecified; M13.852 Other specified arthritis, left hip; M13.851 Other specified arthritis, right hip
CPT/HCPCS: 85025; 80048; 36415; 82947; 76000; 20611; J2704; J7030; J2250

== ENCOUNTER 2022-12-19 14:16 | Emergency (ER) | payer OTHER ==
--- OUTSIDE RECORDS SUMMARY | 2022-12-19 14:21 | XMS REPORT | Continuity of Care Document ---
:1955 Author Organization [facility] t Address [address] [place] [address] [place] [id number] Care Team Providers Name Role Phone TAMRA SPIVEY Primary Care Physician Unavailable PRIYA MEDINA Attending Clinician Unavailable MARY JIMENES Attending Clinician Unavailable Mary Jimenes MD Attending Clinician Doctor Unassigned, [place] Attending Clinician Unavailable Pob, [facility] Attending Clinician Unavailable MARY JIMENES Admitting Clinician Unavailable Payers Payer Name Policy Type Policy Number Effective Date Expiration Date S pamella CIGNA LOCALPLUS [id number] 2011 00:00:00 CIGNA II [id number] 2014 00:00:00 MEDICARE PART A [id number] 1998 \T\ B 00:00:00 Problems Condition Condition Condition Status Onset Resolution Last Treating Co mments Source Name Details Category Date Date Treatment Clinician Date Post-op Post-op Disease Active [facility] pain pain 9 ity of 00:00: [address] Status Status Disease Active [facility] post hip post hip 11-11 ity of surgery surgery 00:00: [address] Allergies, Adverse Reactions, Alerts Allergy Allergy Status Severity Reaction(s) Onset Inactive Treating Comm ents Source Name Type Date Date Clinician massiel MONCADA Active [facility] 01-24 00:00: [address] NO KNOWN Drug Active [facility] ALLERGIE Class ity of [facility] Social History Social Habit Start Date Stop Date Quantity Comments Source Alcohol intake 2015-01-07 2015-01-07 Current University 00:00:00 00:00:00 non-drinker of [facility] alcohol Branch (finding) Sex Ass[birth year] At [birth year] [facility] of 00:00:00 00:00:00 [facility] Smoking Status Start Date Stop Date Source Never smoker [facility] Medications Ordered Filled Start Stop Current Ordering Indication Dosage Frequency Signature Comments Components Source Medication Medication Date Date Medication? Clinician (SIG) Name Name TAPENTADOL Yes Take by Univ ers HCL 01-07 mouth 2 ity of (NUCYNTA ER 11:59: (two) [place] ORAL) 05 times Medical daily. Branch SITAGLIPTIN Yes Take by Uni vers PHOS/METFOR 01-07 mouth. ity of MIN HCL 11:59: [place] (JANUMET 05 Medical ORAL) Branch isosorbide Yes 30mg Take 30 mg U nivers dinitrate 01-07 by mouth ity of (ISORDIL) 11:59: daily. [place] 30 mg 05 Medical tablet Branch nitroglycer Yes .4mg Place 0.4 U nivers in 01-07 mg under ity of (NITROSTAT) 11:59: the tongue [place] 0.4 mg 05 every 5 Medical sublingual (five) Branch tablet minutes as needed for Chest pain. simvastatin Yes 80mg Take 80 mg Univers (ZOCOR) 80 01-07 by mouth ity o f mg tablet 11:59: daily. [address] metoprolol Yes 50mg Take 50 mg U nivers tartrate 01-07 by mouth 2 ity o f (LOPRESSOR) 11:59: (two) [place] 50 mg 05 times Medical tablet daily. Branch clopidogrel Yes 75mg Take 75 mg Univers (PLAVIX) 75 01-07 by mouth ity of mg tablet 11:59: daily. [address] aspirin 81 Yes 81mg Take 81 mg U nivers mg chewable 01-07 by mouth ity of tablet 11:59: daily. [address] zolpidem Yes 10mg Take 10 mg Uni vers (AMBIEN) 10 01-07 by mouth ity of mg tablet 11:59: [place]time [place] 05 as needed Medical for Branch Insomnia. clonazePAM Yes 1mg Take 1 mg Un trino (KLONOPIN) 01-07 by mouth 2 ity of 1 mg tablet 11:59: (two) [place] 05 times Medical daily. Branch gabapentin Yes 800mg Take 800 Un trino (NEURONTIN) 01-07 mg by ity of 600 mg 11:59: mouth 2 [place] tablet 05 (two) Medical times Branch daily. cyclobenzap Yes 10mg Take 10 mg Univers rine 01-07 by mouth 3 ity of (FLEXERIL) 11:59: (three[place] 10 [place] 05 times Medical tablet daily. Branch amLODIPine Yes 10mg Take 10 mg U nivers (NORVASC) 01-07 by mouth ity of 10 mg 11:59: daily. [place] tablet 05 Medical Branch TAPENTADOL Yes Take by Univ ers HCL 01-07 mouth 2 ity of (NUCYNTA ER 11:59: (two) [place] ORAL) 05 times Medical daily. Branch SITAGLIPTIN Yes Take by Uni vers PHOS/METFOR 01-07 mouth. ity of MIN HCL 11:59: [place] (JANUMET 05 Medical ORAL) Branch isosorbide Yes 30mg Take 30 mg U nivers dinitrate 01-07 by mouth ity of (ISORDIL) 11:59: daily. [place] 30 mg 05 Medical tablet Branch nitroglycer Yes .4mg Place 0.4 U nivers in 01-07 mg under ity of (NITROSTAT) 11:59: the tongue [place] 0.4 mg 05 every 5 Medical sublingual (five) Branch tablet minutes as needed for Chest pain. simvastatin Yes 80mg Take 80 mg Univers (ZOCOR) 80 01-07 by mouth ity o f mg tablet 11:59: daily. [place] 05 Medical Branch metoprolol Yes 50mg Take 50 mg U nivers tartrate 01-07 by mouth 2 ity o f (LOPRESSOR) 11:59: (two) [place] 50 mg 05 times Medical tablet daily. Branch clopidogrel Yes 75mg Take 75 mg Univers (PLAVIX) 75 01-07 by mouth ity of mg tablet 11:59: daily. [address] Branch aspirin 81 Yes 81mg Take 81 mg U nivers mg chewable 01-07 by mouth ity of tablet 11:59: daily. [address] Branch zolpidem Yes 10mg Take 10 mg Uni vers (AMBIEN) 10 01-07 by mouth ity of mg tablet 11:59: at [place]time [place] 05 as needed Medical for Branch Insomnia. clonazePAM Yes 1mg Take 1 mg Un trino (KLONOPIN) 01-07 by mouth 2 ity of 1 mg tablet 11:59: (two) [place] 05 times Medical daily. Branch gabapentin Yes 800mg Take 800 Un trino (NEURONTIN) 01-07 mg by ity of 600 mg 11:59: mouth 2 [place] tablet 05 (two) Medical times Branch daily. cyclobenzap Yes 10mg Take 10 mg Univers rine 01-07 by mouth 3 ity of (FLEXERIL) 11:59: (three) [place] 10 mg 05 times Medical tablet daily. Branch amLODIPine Yes 10mg Take 10 mg U nivers (NORVASC) 01-07 by mouth ity of 10 mg 11:59: daily. [place] tablet 05 [facility] Branch TAPENTADOL Yes Take by [facility] ers HCL 01-07 mouth 2 ity of (NUCYNTA ER 11:59: (two) [place] ORAL) 05 times Medical daily. Branch SITAGLIPTIN Yes Take by Uni vers PHOS/METFOR 01-07 mouth. ity of MIN HCL 11:59: [place] (JANUMET 05 Medical ORAL) Branch isosorbide Yes 30mg Take 30 mg U nivers dinitrate 01-07 by mouth ity of (ISORDIL) 11:59: daily. [place] 30 mg 05 Medical tablet Branch nitroglycer Yes .4mg Place 0.4 U nivers in 01-07 mg under ity of (NITROSTAT) 11:59: the tongue [place] 0.4 mg 05 every 5 Medical sublingual (five) Branch tablet minutes as needed for Chest pain. simvastatin Yes 80mg Take 80 mg Univers (ZOCOR) 80 01-07 by mouth ity o f mg tablet 11:59: daily. [address] Branch metoprolol Yes 50mg Take 50 mg U nivers tartrate 01-07 by mouth 2 ity o f (LOPRESSOR) 11:59: (two) [place] 50 mg 05 times Medical tablet daily. Branch clopidogrel Yes 75mg Take 75 mg Univers (PLAVIX) 75 01-07 by mouth ity of mg tablet 11:59: daily. [place] Medical Branch aspirin 81 Yes 81mg Take 81 mg U nivers mg chewable 01-07 by mouth ity of tablet 11:59: daily. [place] Medical Branch zolpidem Yes 10mg Take 10 mg Uni vers (AMBIEN) 10 01-07 by mouth ity of mg tablet 11:59: at [place]time [place] 05 as needed Medical for Branch Insomnia. clonazePAM Yes 1mg Take 1 mg Un trino (KLONOPIN) 01-07 by mouth 2 ity of 1 mg tablet 11:59: (two) [place] 05 times Medical daily. Branch gabapentin Yes 800mg Take 800 Un trino (NEURONTIN) 01-07 mg by ity of 600 mg 11:59: mouth 2 [place] tablet 05 (two) Medical times Branch daily. cyclobenzap Yes 10mg Take 10 mg Univers rine 01-07 by mouth 3 ity of (FLEXERIL) 11:59: (three[place] 10 [place] 05 times Medical tablet daily. Branch amLODIPine Yes 10mg Take 10 mg U nivers (NORVASC) 01-07 by mouth ity of 10 mg 11:59: daily. [place] tablet Medical Branch Procedures Procedure Date / Time Performing Clinician Source Performed US RETROPERITONEAL 2021-09-01 20:09:02 Mary Jimenes of [place] COMPLETE Medical Branch ASSIGNMENT OF BENEFITS 2021-09-01 19:42:09 Doctor Unassigned, Un [facility] [place] Medical Branch CBC WITH DIFF 2021-08-18 15:19:00 Mary Jimenes o f [place] [facility] Branch Encounters Start End Encounter Admission Attending Care Care Encounter Source Date/Time Date/Time Type Type Clinicians Facility Department ID 2021-03-[address] [facility] [id number] [place] 09:50:33 Health 2021-03-[address] [facility] [id number] [place] 09:48:32 [facility] 2021-02-25 Outpatient ADAM [facility] [id number] [place] 15:35:12 [facility] 2021-09-01 2021-09-01 Outpatient R JALIL [facility] [id number] Univers 14:43:44 23:59:00 MARY medina [facility] 2021-09-01 2021-09-01 [facility] [id number] Univers 14:43:44 23:59:00 Encounter Mary PITTMANBRIANDA [id number] [place] [id number] [facility] [address] 2021-09-01 2021-09-01 Orders Doctor ELIS [id number] Univers 00:00:00 00:00:00 Only Unassigned, ROBBI 350.1.13.10 ity of [place] [facility] 4.2.7.2.686 [place] as [id number] [facility] [address] 2021-08-24 2021-08-24 Outpatient R JALIL [facility] [id number] Univers 00:00:00 00:00:00 MARY serenity [facility] 2021-08-18 2021-08-18 Property Insurance Inspector Simran, aYncy Lab Main [facility] 1.2.8 [id number] Univers 09:30:00 09:45:00 Visit Jalil Mary TREVIÑO 350.1.13.10 [place] [facility] [id number] Nm dical [address] 2021-08-18 2021-08-18 Outpatient R JALIL [facility] [id number] Univers 09:30:00 09:30:00 MARY lizserenity [facility] 2021-08-18 2021-08-18 [facility]patient [facility] [id number] Univers 09:30:00 09:30:00 MARY serenity [facility] Results Test Description Test Time Test Comments Results Result Comments Source CBC WITH DIFF 2021-08-18 15:27:56 Test Item Value Reference Range Interpretation Comme nts WBC (test code = 6690-2) See_Comment [A utomated message] The system which ge nerated this result transmit harshal reference range: 4.20 - 1 0.70 10*3/?L. The reference r vee was not used to interpr et this result as normal/abnor mal. RBC (test code = 789-8) See_Comment [Au tomated message] The system which ge nerated this result transmit harshal reference range: 4.26 - 5 .52 10*6/?L. The reference r vee was not used to interpr et this result as normal/abnor mal. HGB (test code = 718-7) 13.8 g/dL 12.2-16.4 HCT (test code = 4544-3) 41.7 % 38.4-49.3 MCV (test code = 787-2) 94.6 fL 81.7-95.6 MCH (test code = 785-6) 31.3 pg 26.1-32.7 MCHC (test code = 786-4) 33.1 g/dL 31.2-35.0 RDW-SD (test code = 97035-4) 43.7 fL 38.5-51.6 RDW-CV (test code = 788-0) 12.7 % 12.1-15.4 PLT (test code = 777-3) See_Comment [Au tomated message] The system which ge nerated this result transmit harshal reference range: 150 - 32 8 10*3/?L. The reference range was not used to interpret th is result as normal/abnormal . MPV (test code = 15038-4) 9.5 fL 9.8-13.0 L NRBC/100 WBC (test code = See_Comment [ Automated message] The [id number]) system which [employer] nerated this result transmit harshal reference range: 0.0 - 10 .0 /100 WBCs. The reference r vee was not used to interpr et this result as normal/abnor mal. NRBC x10^3 (test code = <0.01 See_Comment [Au tomated message] The [id number]) system which [employer] nerated this result transmit harshal reference range: 10*3/?L. The reference range was not u sed to interpret this result as normal/abnormal . GRAN MAT (NEUT) % (test code 48.6 % = 770-8) IMM GRAN % (test code = 0.20 % [id number]) LYMPH % (test code = 736-9) 37.1 % MONO % (test code = 5905-5) 9.2 % EOS % (test code = 713-8) 4.0 % BASO % (test code = 706-2) 0.9 % GRAN MAT x10^3(ANC) (test 2.07 10*3/uL 1.99-6.95 code = 6500117101) IMM GRAN x10^3 (test code = <0.03 0.00-0.06 6930164200) LYMPH x10^3 (test code = 1.58 10*3/uL 1.09-3.23 731-0) MONO x10^3 (test code = 0.39 10*3/uL 0.36-1.02 742-7) EOS x10^3 (test code = 0.17 10*3/uL 0.06-0.53 711-2) BASO x10^3 (test code = 0.04 10*3/uL 0.01-0.09 704-7) Lab Interpretation (test Abnormal code = 22039-5) [facility]25 08:23:00 Test Item Value Reference Range Interpretation Comments TRIGLYCERIDES (test 117 MG/DL TRIGLYCE RIDES code = TRIG) REFERENCE RANGE:Normal: < 150 mg/dLBorderline High: 150-199 mg/dLHi gh: 200-499 mg/dLVe ry High: >=500 mg/ dL CHOLESTEROL (test code 175 MG/DL <200 = CHOL) HDL CHOLESTEROL (test 39 MG/DL 40-59 L code = HDL) LIPOPROTEIN LDL (test 117 MG/DL 0-99 H OPTIM AL.........<100 code = LDL) mg/dLNEAR OPTIMAL/ABOVE OPTIMAL........ .100-12 9 mg/dL BORDERL INE HIGH.........13 0-159 mg/dL HIGH.........16 0-189 mg/dL VERY HIGH.........>/ = 190 mg/dL LIPID [...] code = LDL) MG/DL 0-99 BASIC METABOLIC [id number] 07:21:00 Test Item Value Reference Range Interpretation [...] code = 9.9 MG/DL 8.4-10.2 N CA) [id number] 07:21:00 Test Item Value Reference Range Interpretation Comments LIPASE (test code = LIP) 65 UNITS/L 23-300 N [id number] 07:21:00 Test Item Value Reference Range Interpretation Comments MAGNESIUM (test code = MAG) 2.2 MG/DL 1.6-2.3 N PROTHROMBIN [id number] 07:21:00 Test Item Value Reference Range Interpretation Comments PROTHROMBIN TIME 10.7 SECONDS 9.6-11.6 N PATIENT (test code = PTP) INTERNATIONAL NORMAL 1.0 0.8-1.1 N The INR is to be RATIO (test code = used only for INR) monitoring oral anticoagulantth erap y. INDICATION INR VALUE ---- ---- ---- -------1. Prophylaxis, de ep venous thrombos is, including high risk surgery. 2.0 - 3.0 2. Prophylaxis, deep venous thrombosis, hip surgery, treatm ent for deep venous thrombosis or pulmonary prevention of systemic emboli sm in patients wit h valvular heart disease, atrial fibrillation, tissue heart va lve, or acute myocar dial infarction. 2.0 - 3.0 3. Construction Lineman al prosthesis hear t valves, recurre nt systemic emboli sm. 3.0 - 4.5 Comments to [employer]: WILL BRING TO THE LABPTT [id number] 07:21:00 Test Item Value Reference Range Interpretation Comments PTT ACTIVATED (test code = APTT) 32.9 SECONDS 22.0-33.0 N Comments to [employer] Shell [employer]inder: WILL BRING TO THE LABBASIC METABOLIC [id number] 07:20:00 Test Item Value Reference Range Interpretation [...] CALCIUM (test code = MG/DL 8.7-9.7 CA) [id number] 07:20:00 Test Item Value Reference Range Interpretation Comments LIPASE (test code = LIP) 65 UNITS/L 23-300 N [id number] 07:20:00 Test Item Value Reference Range Interpretation Comments MAGNESIUM (test code = MAG) MG/DL 1.6-2.3 BASIC METABOLIC [id number] 07:18:00 Test Item Value Reference Range Interpretation [...] CALCIUM (test code = CA) MG/DL 8.7-9.7 [id number] 07:18:00 Test Item Value Reference Range Interpretation Comments LIPASE (test code = LIP) UNITS/L 23-300 [id number] 07:18:00 Test Item Value Reference Range Interpretation Comments MAGNESIUM (test code = MAG) MG/DL 1.6-2.3 BASIC METABOLIC [id number] 07:17:00 Test Item Value Reference Range Interpretation [...] CALCIUM (test code = CA) MG/DL 8.7-9.7 [id number] 07:17:00 Test Item Value Reference Range Interpretation Comments LIPASE (test code = LIP) UNITS/L 23-300 [id number] 07:17:00 Test Item Value Reference Range Interpretation Comments MAGNESIUM (test code = MAG) MG/DL 1.6-2.3 CBC W/AUTO [id number] 07:07:00 Test Item Value Reference Range Interpretation [...] code = 0.00 K/mm3 0.0-0.1 N NRBC#) Notes Date/Time Note Provider Source 2019-01-25 09:43:00-00:00 [id number] [facility] [address] [place] [address] PATIENT NAME: VICENTE QUIÑONES ADMIT DATE: 01/25/19 ACCOUNT NO: [id number] ROOM NO: AGE: 63 REPORT TYPE: CARDIAC CATHETERIZATION REPORT SEX: M ADMITTING PHYSICIAN: ATTENDING PHYSICIAN:Derick Duarte MD PROCEDURE DATE: 01/25/2019 CARDIOLOGY PROCEDURE PNEUMATIC HOIST OPERATOR: Derick Duarte MD. TITLE OF THE PROCEDURE: Left heart catheterizati on. INDICATION FOR THE PROCEDURE : Angina, coronary artery disease, previous stents, abnormal nuclear stress test. ESTIMATED BLOOD LOSS: Minimal. COMPLICATIONS: None. CONTRAST: 85 mL. ANESTHESIA: Conscious sedation with Versed and f entanyl and 1% lidocaine for local anesthesia. FINAL DIAGNOSES: Three-vessel coronary artery di sease, patent stents x5. Recommendation is medical therapy. PROCEDURE IN DETAIL: After informed consent, the patient was brought to the cardiac catheterization lab in a stable fasting nonsedated state. He was prepped and draped in the usual sterile fashion. After conscious sedation, 1% lidocaine was administered to the right common f emoral artery area for local anesthesia. A 6-Lao sheath was placed in the right common femoral artery using standard techniques and fluoroscop y. After heparinization, left coronary angiogram showed patent circumflex stents x3. Th ere was no disease in the circumflex. The ramus appeared to be lexa e of angiographic disease. The LAD had a 35% mid and 55% mid to distal lesions. The corona nt distally is patent with a 30% apical LAD plaque. The right coronary angiog yvon showed a patent stent proximal, there was a 50% distal and the re was a 60% and a small PDA. The left ventricular angiogram showed an ejection fractio n of 60%, left ventricular end-diastolic pressure of 26 and no significant wall motion abnormality or aortic valve gradient. The right groin w as sealed using Angio-Seal. There were no complications. The patient tolerated the proc edure well. The patient will be treated medically. His coronary artery diseas e appears stable. The patient was transferred back to the holding area for observation to be discharged later on today on medical therapy and risk factor celia fication. PATIENT NAME: VICENTE QUIÑONES [id number] Dictated By: Derick Duarte MD WT: CATH:AUREA/SANAZ/CHELSEY Conf#: [id number]/DID#: [id number] Authenticated by Derick Duarte MD On 01/06 10:29:50 AM at 1030 PATIENT NAME: VICENTE QUIÑONES 670 2019-01-25 07:24:00-00:00 [id number] [place] [id number] PATIENT NAME: VICENTE QUIÑONES ADMIT DATE: 01/25/19 ACCOUNT NO: [id number] ROOM NO: AGE: 63 REPORT TYPE: ELECTROCARDIOGRAM SEX: M ADMITTING PHYSICIAN: ATTENDING PHYSICIAN:Derick Duarte MD Order: [id number] Test Reason : CAD Test Date/Time Stamp: SunJan 25 2019 07:24:51 Blood Pressure : / mmHG Vent. Rate : 091 BPM Atrial Rate : 091 BPM P-R Int : 146 ms QRS Dur : 076 ms QT Int : 360 ms P-R-T Axes : 053 065 042 degree s QTc Int : 442 ms Normal sinus rhythm Normal ECG No previous ECGs available Confirmed by DERICK DUARTE ([id number]) on 01/25/2019 12:40:53 PM Referred By: Derick Duarte Confirmed by:DERICK SWAN at 1241 PATIENT NAME: VICENTE QUIÑONES 670 2019-01-23 17:56:00-00:00 [id number] [address] PATIENT NAME: VICENTE QUIÑONES ADMIT DATE: ACCOUNT NO: [id number] ROOM NO: AGE: 63 REPORT TYPE: HISTORY AND PHYSICAL SEX: M ADMITTING PHYSICIAN: ATTENDING PHYSICIAN:Derick Duarte MD PATIENT NAME: VIECNTE QUIÑONES ADMIT DATE: 9 ADMISSION DATE: 01/25/2019 PNEUMATIC HOIST OPERATOR: Derick Duarte MD REASON FOR ADMISSION: Cardia c catheterization and possible revascularization in a patient with angina, known coronary artery dis ease and previous stenting. HISTORY OF PRESENT ILLNESS: Vicente is a 63-year -old patient of mine with a long history of coronary artery disease and prev ious revascularization. His last intervention was on 03/28/2008. At that vamshi e, he had stenting of the distal LAD. Prior to that, stefany neumann has had stents of the circumflex and of the right coronary artery. The patient has a long history of coronary artery disease. He has multiple cardiovascular risk factors . Lately, he has been having recurrent angina and dyspnea on mild exertion. Non invasive workup was carried out with a nuclear stress test that was positive fo r inferior ischemia. Ejection fraction was 52%. His echocardiogram showed harry l ejection fraction and no significant valvular insufficiencies. He did have impaired L V relaxation. He has moderate carotid disease. Given his e xtensive history and his previous interventions and his abnormal nuclear stress test as well as his current symptoms, he is here for cardiac catheterization to assess for possible r evascularization. The patient did have a myocardial infarction back in July. He underwent 3 stents at that time was one in the right coronary artery, one in the circumflex and one in the obtuse marginal and as mentioned above, t he last stent was in the LAD. PAST MEDICAL HISTORY: Remarkable for hypertensio n since 1985. The patient has chronic back pains, has had morphine pump in the past. He does have hyperlipidemia, mild mitral regurgitation, PVCs, diabetes, acid reflux, and osteoarthritis. PAST SURGICAL HISTORY: He leiva s had cholecystectomy, back surgeries, several foot surgeries for bunions, place ment of the plate had been infected in the past and had to be removed and he has had pain pumps. ALLERGIES: STADOL CAUSES RASH. MEDICATIONS: He takes omeprazole 40 mg daily, cl opidogrel 75 mg daily, cyclobenzaprine 10 mg as needed t.i.d., duloxetine 60 mg daily, gabapentin 600 mg daily, oxycodone/acetamin ophen every 6 hours as needed, metformin 500 mg once a day, glipizide 10 mg b.i.d., Jardiance 10 mg d aily, aspirin 81 mg daily, amlodipine, benazepril 10/40 mg daily, a torvastatin 40 mg daily, isosorbide 20 mg twice daily, and metoprolol 50 mg b.i.d. PATIENT NAME: VICENTE QUIÑONES 670 SOCIAL HISTORY: The patient is a nonsmoker. Ther e is no history of alcohol or street drug use. FAMILY HISTORY: Negative for premature atheroscl erosis. REVIEW OF SYSTEMS: Remarkabl e for the above, especially the chronic back pains, dizziness at times headaches, insomnia, dry mout h, generalized weakness. No acute GI or symptoms. No TIAs or strokes. He does have some anxiety and depression symptoms. PHYSICAL EXAMINATION: GENERAL: Reveals a pleasant middle-aged male, in no acute distress. VITAL SIGNS: Blood pressure 138/79, pulse 89 per minute and regular, respiratory rate 18 and unlabored, temperature a febrile. HEENT: Head, atraumatic and normocephalic. Eyes and ENT examination within normal for age. NECK: Supple. No jugular venous distention, brui ts, or lymphadenopathy. Normal upstroke. LUNGS: Clear and resonant. HEART: Regular rate and rhythm with I/ systoli c ejection murmur at the left lower sternal border. No gallops. ABDOMEN: Soft. No tenderness, no organomegaly, n o masses or bruits. EXTREMITIES: 2+ distal pulses. No edema, cyanosi s, or clubbing. NEUROLOGIC: Alert and oriented x3. Examination a ppears to be nonfocal. LABORATORY DATA: Pending. Noninvasive cardiovasc ular workup enclosed. IMPRESSION: This is a 63-year-old patient with e xtensive cardiac history and previous stents, who lately has been having worsening angina and dyspnea on mild exertion. He has an abnormal nuclear str ess test with inferior ischemia. He is here for cardiac catheterization to assess for p ossible further revascularization. RECOMMENDATION: Proceed with the above. The risk s and benefits of the planned procedures were discussed in detail with the pat ient and he is willing to proceed. Rest as per orders. Dictated By: Derick Duarte MD WT: HP:ZJOE/SANAZ/CHELSEY Conf#: [id number]/DID#: [id number] Authenticated and Edited by Derick Duarte MD On 01/24/19 4:29:11 PM at 1631 PATIENT NAME: VICENTE QUIÑONES 670
--- NOTE | 2022-12-19 16:16 | RAD REPORT ---
EXAM DESCRIPTION: RAD - Femur Left - 12/19/2022 3:27 pm CLINICAL HISTORY: PAIN COMPARISON: No comparisons TECHNIQUE: Left femur, 2 views. FINDINGS: No fracture is identified. Left total hip arthroplasty hardware in satisfactory alignment. Sequelae of remote [place]-Schlatter's disease. There is no dislocation or periosteal reaction noted. No acute or suspicious bony finding. IMPRESSION: No acute osseous abnormality. Findings as above.
--- NOTE | 2022-12-19 16:17 | RAD REPORT ---
EXAM DESCRIPTION: RAD - Hip Left 2 View - 12/19/2022 3:27 pm CLINICAL HISTORY: PAIN COMPARISON: Hip Left 1 View dated 11/14/2022 TECHNIQUE: Left hip, AP and frogleg views of the left hip. FINDINGS: There is no fracture or dislocation. Left total hip arthroplasty hardware in satisfactory alignment. No acute or destructive bony process seen. IMPRESSION: No acute findings of the left hip.
--- NOTE | 2022-12-19 16:20 | ER ---
Nurse's Notes [facility] Name: Vicente Roblero Age: 67 yrs Sex: Male : 1955 Arrival Date: 12/19/2022 Time: 14:16 Bed 12 Private MD: Diagnosis: Contusion of left lower leg Presentation: 12/19 14:32 Chief complaint: Patient states: he had a left hip replacement sx on 11/14/22, and he ap3 fell today. patient is reporting left upper leg pain, and reports not being able to place any weight on the left leg. Coronavirus screen: At this time, the client does not indicate any symptoms associated with coronavirus-19. Ebola Screen: No symptoms or risks identified at this time. Initial Sepsis Screen: Does the patient meet any 2 criteria? No. Patient's initial sepsis screen is negative. Does the patient have a suspected source of infection? No. Patient's initial sepsis screen is negative. Risk Assessment: Do you want to hurt yourself or someone else? Patient reports no desire to harm self or others. Onset of symptoms was December 19, 2022. 14:32 Method Of Arrival: Wheelchair ap3 14:32 Acuity: IRWIN 4 ap3 Triage Assessment: 14:35 General: Appears uncomfortable, Behavior is calm, cooperative, appropriate for age. ap3 Pain: Complains of pain in left quadriceps Pain currently is 9 out of 10 on a pain scale. Neuro: Level of Consciousness is awake, alert, obeys commands, Oriented to person, place, time, situation. Cardiovascular: Patient's skin is warm and dry. Respiratory: Airway is patent Respiratory effort is even, unlabored, Respiratory pattern is regular, symmetrical. Historical: - Allergies: 14:34 Stadol; ap3 - PMHx: 14:34 Back pain; cardiac stents x 5; Diabetes - NIDDM; GERD; Hypertension; Myocardial ap3 infarction; Angina pectoris; - PSHx: 14:34 left hip replacement 11/14 (November 14, 2022); ap3 - Immunization history:: Client reports receiving the 2nd dose of the Covid vaccine. - Social history:: Smoking status: Patient denies any tobacco usage or history of. - Family history:: not pertinent. - Hospitalizations: : No recent hospitalization is reported. Screenin:35 Abuse screen: Denies threats or abuse. Nutritional screening: No deficits noted. ap3 Tuberculosis screening: No symptoms or risk factors identified. 14:36 [facility] ED Fall Risk Assessment (Adult) History of falling in the last 3 months, mb9 including since admission Yes- single mechanical fall (1 pt) Confusion or Disorientation No (0 pts) Intoxicated or Sedated No (0 pts) Impaired Gait No (0 pts) Mobility Assist Device Used Yes (1 pt) Altered Elimination No (0 pt) Score/Fall Risk Level 0 - 2 = Low Risk Oriented to surroundings, Maintained a safe environment, Educated pt \T\ family on fall prevention, incl call for assistance when getting out of bed. Assessment: 14:36 Reassessment: see triage assessment. mb9 15:45 Reassessment: No changes from previously documented assessment. Patient and/or family mb9 updated on plan of care and expected duration. Pain level reassessed. Patient is alert, oriented x 3, equal unlabored respirations, skin warm/dry/pink. Vital Signs: 14:32 BP 162 / 108; Pulse 110; Resp 18; Temp 97.7; Pulse Ox 99% ; Weight 82.55 kg; Pain 9/10; ap3 15:45 BP 157 / 92; Pulse 88; Resp 17; Pulse Ox 98% on R/A; mb9 14:32 Pain Scale: Adult ap3 ED Course: 14:19 Patient arrived in ED. rg4 14:25 Perico Eric MD is Attending Physician. rn 14:34 Triage completed. ap3 14:36 Rachel Stewart, RN is Primary Nurse. mb9 14:36 Arm band placed on left wrist. ap3 14:37 Bed in low position. Call light in reach. Side rails up X 1. Client placed on mb9 continuous cardiac and pulse oximetry monitoring. NIBP monitoring applied. 15:29 XRAY Hip LEFT 2 view In Process Unspecified. EDMS 15:29 XRAY Femur LEFT In Process Unspecified. EDMS 16:30 No provider procedures requiring assistance completed. Patient did not have IV access mb9 during this emergency room visit. Administered Medications: 16:30 Drug: Ibuprofen PO 800 mg Route: PO; mb9 Medication: 14:36 VIS not applicable for this client. mb9 Outcome: 16:19 Discharge ordered by . rn 16:30 Discharged to home ambulatory. mb9 16:30 Condition: stable 16:30 Discharge instructions given to patient, Instructed on discharge instructions, follow up and referral plans. Demonstrated understanding of instructions, follow-up care. 16:30 Patient left the ED. mb9 Signatures: Dispatcher [employer] EDPerico Guo MD MD rn Garcia, Rubi rg4 Morenita Suarez RN RN ap3 Rachel Stewart RN RN [email or web address] Corrections: (The following items were deleted from the chart) 14:35 14:34 PMHx: Hyperlipidemia; ap3 ap3
--- NOTE | 2022-12-19 16:20 | EDPHYS ---
Physician Documentation [facility] Name: Vicente Roblero Age: 67 yrs Sex: Male : 1955 Arrival Date: 12/19/2022 Time: 14:16 Bed 12 Private MD: ED Physician Perico Eric HPI: 12/19 14:35 This 67 yrs old Black Male presents to ER via Wheelchair with complaints of Fall Injury.rn 14:35 Details of fall: The patient fell from an upright position, while walking. Onset: The rn symptoms/episode began/occurred just prior to arrival. Associated injuries: The patient sustained left thigh. Severity of symptoms: At their worst the symptoms were moderate, in the emergency department the symptoms have improved. The patient has not experienced similar symptoms in the past. Fall while walking, didn't see step, landed on left leg, reports pain to mid left thigh. No other injury. Had total hip replacement with Dr. Strong 1-2 months ago. Reports pain with weight bearing. . Historical: - Allergies: 14:34 Stadol; ap3 - PMHx: 14:34 Back pain; cardiac stents x 5; Diabetes - NIDDM; GERD; Hypertension; Myocardial ap3 infarction; Angina pectoris; - PSHx: 14:34 left hip replacement 11/14 (November 14, 2022); ap3 - Immunization history:: Client reports receiving the 2nd dose of the Covid vaccine. - Social history:: Smoking status: Patient denies any tobacco usage or history of. - Family history:: not pertinent. - Hospitalizations: : No recent hospitalization is reported. ROS: 14:35 Constitutional: Negative for fever, chills, and weight loss, Neck: Negative for injury, rn pain, and swelling, Cardiovascular: Negative for chest pain, palpitations, and edema, Respiratory: Negative for shortness of breath, cough, wheezing, and pleuritic chest pain, Abdomen/GI: Negative for abdominal pain, nausea, vomiting, diarrhea, and constipation, Back: Negative for injury and pain, MS/Extremity: + left leg injury and pain Skin: Negative for injury, rash, and discoloration, Neuro: Negative for headache, weakness, numbness, tingling, and seizure. Exam: 14:35 Constitutional: This is a well developed, well nourished patient who is awake, alert, rn and in no acute distress. Head/Face: Normocephalic, atraumatic. MS/ Extremity: Pulses equal, no cyanosis. Neurovascular intact. Able to range left leg at hip without much pain, + tender to palpation left anterior thigh without gross hematoma. No tenderness to left hip proper/knee/tib/fib/ankle/foot. Vital Signs: 14:32 BP 162 / 108; Pulse 110; Resp 18; Temp 97.7; Pulse Ox 99% ; Weight 82.55 kg; Pain 9/10; ap3 15:45 BP 157 / 92; Pulse 88; Resp 17; Pulse Ox 98% on R/A; mb9 14:32 Pain Scale: Adult ap3 MDM: 14:26 Patient medically screened. rn 16:18 Differential diagnosis: contusion, fracture, sprain, strain. Data reviewed: vital rn signs, nurses notes, radiologic studies, plain films, and as a result, I will discharge patient. Counseling: I had a detailed discussion with the patient and/or guardian regarding: the historical points, exam findings, and any diagnostic results supporting the discharge/admit diagnosis, radiology results, the need for outpatient follow up, to return to the emergency department if symptoms worsen or persist or if there are any questions or concerns that arise at home. Special discussion: I discussed with the patient/guardian in detail that at this point there is no indication for admission to the hospital. It is understood, however, that if the symptoms persist or worsen the patient needs to return immediately for re-evaluation. ED course: No acute findings on xray of femur/hip. Will dc home with return precautions. 16:24 ED course: Pt declines pain medication prescription, states is on pain management. . rn 12/19 14:34 Order name: XRAY Hip LEFT 2 view; Complete Time: 16:18 rn 12/19 14:34 Order name: XRAY Femur LEFT; Complete Time: 16:18 rn Administered Medications: 16:30 Drug: Ibuprofen PO 800 mg Route: PO; mb9 Disposition Summary: 12/19/22 16:19 Discharge Ordered Location: Home rn Problem: new rn Symptoms: have improved rn Condition: Stable rn Diagnosis - Contusion of left lower leg rn Followup: rn - With: Private Physician - When: As needed - Reason: Recheck today's complaints, Re-evaluation by your physician Discharge Instructions: - Discharge Summary Sheet rn - Contusion rn Forms: - Medication Reconciliation Form rn - Thank You Letter rn - Antibiotic pricing intern - Prescription Opioid Use rn - Patient Portal Instructions rn - Leadership Thank You Letter rn - Work release form mb9 Prescriptions: - Ibuprofen 800 mg Oral Tablet - take 1 tablet by ORAL route every 12 hours As needed take with food; 20 tablet; rn Refills: 0, Product Selection Permitted Signatures: Dispatcher [employer] Perico Caal MD MD rn Prokisch, Amanda, RN RN ap3 Rachel Stewart RN RN mb9 Corrections: (The following items were deleted from the chart) 14:35 14:34 PMHx: Hyperlipidemia; ap3 ap3
[2022-12-19] MEDS ORDERED: IBUPROFEN 400 MG TAB ONE (16:37)
[2022-12-19 16:44] VITALS: TEMP 97.7
[2022-12-19 16:45] VITALS: BP 157/92; O2SAT 98
== END 2022-12-19 16:30 | disposition home or self-care (01) ==
LOC: ER 14:16
DX: S80.12XA Contusion of left lower leg, initial encounter (principal); Z96.642 Presence of left artificial hip joint; Z88.5 Allergy status to narcotic agent
CPT/HCPCS: 99283